=== PATIENT | female | born 1945 | race Hispanic/Latino ===

== ENCOUNTER 2017-04-01 10:41 | Emergency (ER) | payer MEDICARE ==
--- NOTE | 2017-04-01 14:03 | RAD ---
THREE VIEWS OF THE LEFT ANKLE: HISTORY: The patient has had pain along the lateral malleolar region since recent injury. TECHNIQUE: AP, lateral, and oblique views of the left ankle are obtained. FINDINGS: Images demonstrate a tiny osseous area of density dorsal to the navicula. This may represent a smal l avulsion fracture or may represent some soft tissue calcifications. No evidence of fractures or b vijay lesions seen otherwise. No evidence of medial, posterior, or lateral malleolar abnormalities se en. No significant evidence of left ankle edema seen. IMPRESSION: Tiny osseous density dorsal to the navicula. POS: [facility]
--- NOTE | 2017-04-01 14:07 | RAD ---
THREE VIEWS LEFT FOOT HISTORY: Left foot pain. Titus a crunching in her left ankle and has had pain since then. FINDINGS: AP, lateral, and oblique views of the left foot are obtained. No evidence of definite left foot fracture, subluxations, or bony lesions seen. Left foot demonstra tony no significant acute pathology. IMPRESSION: Normal three views left foot. POS: [facility]
== END 2017-04-01 12:25 | disposition home or self-care (01) ==
LOC: SCSER 10:41
DX: M79.672 Pain in left foot (principal); I25.10 Atherosclerotic heart disease of native coronary artery without angina pectoris; I25.2 Old myocardial infarction; E03.9 Hypothyroidism, unspecified; E78.5 Hyperlipidemia, unspecified; I10 Essential (primary) hypertension; Z87.891 Personal history of nicotine dependence; Z79.82 Long term (current) use of aspirin; Z79.899 Other long term (current) drug therapy; X50.1XXA Overexertion from prolonged static or awkward postures, initial encounter; Y93.01 Activity, walking, marching and hiking

== ENCOUNTER 2017-08-12 02:06 | Emergency (ER) | payer MEDICARE ==
--- NOTE | 2017-08-12 08:41 | RAD ---
CHEST PA AND LATERAL: HISTORY: A 72-year-old female with a history of cough. COMPARISON: 02/17/17. FINDINGS: Postop midline sternotomy. Atherosclerosis of the aorta. No confluent pneumonia, overt edema, or pl eural effusion. Stable from prior study. IMPRESSION: Atherosclerosis of the aorta. No acute intrathoracic disease. Stable from prior study. POS: [facility]
== END 2017-08-12 02:39 | disposition home or self-care (01) ==
LOC: SCSER 02:06
DX: B34.9 Viral infection, unspecified (principal); I25.10 Atherosclerotic heart disease of native coronary artery without angina pectoris; I25.2 Old myocardial infarction; E03.9 Hypothyroidism, unspecified; E78.5 Hyperlipidemia, unspecified; I10 Essential (primary) hypertension; Z87.891 Personal history of nicotine dependence
CPT/HCPCS: 71046

== ENCOUNTER 2017-12-11 06:56 | Inpatient (IN) | payer MEDICARE ==
[2017-12-11] MEDS ORDERED: methylPREDNISolone Sod Succ/PF 125 MG/2 ML VIAL ONE (07:23)
[2017-12-11] MEDS ORDERED: Water For Inject, Bacteriostat 30 ML ONE (07:23)
[2017-12-11 08:06] LABS: #Basophils 0.1 thou/uL (0.0-0.2); #Eosinphils 0.2 thou/uL (0.0-0.7); #Lymphocytes 1.3 thou/uL (1.20-3.40); #Monocytes 0.8 thou/uL (0.11-0.59); #Neutrophils 7.6 thou/uL (1.40-6.50); %Basophils 0.7 % (0.0-1.0); %Eosinophils 1.5 % (0.0-10.0); %Lymphocytes 13.1 % (21.0-51.0); %Monocytes 8.4 % (0.0-10.0); %Neutrophils 76.3 % (42.0-75.0); Hemoglobin 13.4 g/dL (12.0-16.0); Mean Corpuscular HGB CONC 35.7 g/dL (32.0-36.0); Mean Corpuscular Hemoglobin 32.5 pg (27.0-31.0); Mean Corpuscular Volume 91.3 fl (81.0-99.0); Mean Platelet Volume 6.1 fL (7.4-10.4); Platelet Count 216 thou/uL (130-400); RBC Distribution Width 11.5 % (11.5-14.5); Red Blood Cell (RBC) Count 4.13 mill/uL (4.20-5.40)
[2017-12-11 08:22] LABS: ALT (SGPT) 35 U/L (8-55); AST (SGOT) 26 U/L (5-34); Albumin 3.9 g/dL (3.4-4.8); Alkaline Phosphatase 72 U/L (40-150); Anion Gap 16 mmol/L (10-20); BUN (Urea Nitrogen) 13 mg/dL (9.8-20.1); Bilirubin, Total 1.2 mg/dL (0.2-1.2); CK (CPK) 40 U/L (29-168); Calc. Creatinine Clearance 0 mL/min (70-130); Calcium 9.5 mg/dL (7.8-10.44); Carbon Dioxide 22 mmol/L (23-31); Chloride 103 mmol/L (98-107); Estimated GFR-MDRD 76; Globulin 3.8 g/dL (2.4-3.5); Glucose 135 mg/dL (83-110); Potassium 3.8 mmol/L (3.5-5.1); Protein, Total 7.7 g/dL (6.0-8.3); Sodium 137 mmol/L (136-145)
[2017-12-11 08:25] LABS: CKMB 0.2 ng/mL (0-6.6); Troponin I Less than 0.010 ng/mL (< 0.028)
--- NOTE | 2017-12-11 08:46 | RAD ---
TWO VIEWS CHEST: HISTORY: Dyspnea. Tachycardia. FINDINGS: PA and lateral views of the chest obtained on 12/11/17. Comparison is made to previous exam from 8. Two views chest demonstrate sternotomy wires seen. The lungs are well aerated. No evidence of activ e intrathoracic disease is seen. No evidence of effusions, pneumonia, or pneumothorax seen. IMPRESSION: Unremarkable 2 views chest. POS: [facility]
--- NOTE | 2017-12-11 09:49 | CT ---
CT ANGIO CHEST WITH IV CONTRAST: Date: 12/11/17 Multiple axial tomograms obtained through chest following a pulmonary angio protocol with multiplanar reconstruction and 3D postprocessing. INDICATIONS: Dyspnea. Tachycardia. Decreased O2 saturation. FINDINGS: Pulmonary arteries show adequate opacification. There is no evidence of pulmonary embolus identified. There are mild atelectatic changes in the posterior lung bases. Otherwise, no focal infiltrate or con solidation. No effusion. Mediastinum is unremarkable. No adenopathy. IMPRESSION: 1. No evidence of pulmonary embolus. 2. Mild atelectasis in the posterior lung bases. No evidence of pulmonary infiltrate. POS: [facility]
[2017-12-11 11:51] LABS: Troponin I Less than 0.010 ng/mL (< 0.028)
[2017-12-11 12:07] VITALS: BMI 34.4
[2017-12-11] MEDS ORDERED: Acetaminophen 325 MG TAB PO PRN ×2 (12:48→15:23)
[2017-12-11] MEDS ORDERED: Ondansetron ODT 4 MG TAB PO PRN ×2 (12:48→15:23)
[2017-12-11] MEDS ORDERED: Ondansetron HCl/PF 4 MG/2 ML Vial IVP PRN ×2 (12:48→15:23)
[2017-12-11] MEDS ORDERED: Iopamidol 370 76% 100 ML VIAL ONE (14:50)
[2017-12-11] MEDS ORDERED: Loperamide HCl 2 MG CAP PO PRN (15:23)
[2017-12-11] MEDS ORDERED: Artificial Tears 18 DROP/0.9 ML EA EYE PRN (15:23)
[2017-12-11] MEDS ORDERED: Diabetic Tussin 200 MG/10 ML UDCUP PO PRN (15:23)
[2017-12-11] MEDS ORDERED: Chloraseptic Spray 180 ml Bottle PO PRN (15:23)
[2017-12-11] MEDS ORDERED: Mag-Al 1200 mg/1200 mg/30 ML UDCUP PO PRN (15:23)
[2017-12-11] MEDS ORDERED: Milk Of Magnesia 30 ML UDCUP PO PRN (15:23)
[2017-12-11] MEDS ORDERED: Zolpidem Tartrate 5 MG TAB PO PRN (15:23)
[2017-12-11] MEDS ORDERED: hydrALAZINE 20 MG/ML VIAL SLOW IVP PRN (15:23)
[2017-12-11] MEDS ORDERED: Loratadine 10 MG TAB PO PRN (15:23)
[2017-12-11] MEDS ORDERED: Nitroglycerin 0.4 MG TAB (25 Tab Bottle) SL PRN (15:23)
[2017-12-11] MEDS ORDERED: Sodium Chloride 0.65% Nasal 44 ML BOT EA NARE PRN (15:23)
[2017-12-11] MEDS ORDERED: Senokot 8.6 MG TAB PO PRN (15:23)
[2017-12-11] MEDS ORDERED: Eucerin (Mineral Oil/Petrolatum,White) 30 gm Jar TOP PRN (15:23)
[2017-12-11] MEDS ORDERED: Meclizine HCl 25 MG TAB PO PRN (15:23)
--- NOTE | 2017-12-11 15:57 | HP ---
PRIMARY CARE PHYSICIAN: Nathanael Cota M.D. REASON FOR ADMISSION: Dyspnea on exertion. HISTORY OF PRESENT ILLNESS: A 72-year-old female with a history of asthma, hypertension, co ronary artery disease who presented to [facility] with complaint of dyspnea on exertion for the last 2 weeks, but symptoms gotten worse for last 2 days. The patient does have history of smoking about 1 pack per day for 30-40 years, but she quit smoking 5 years ago. Patient w as recently admitted in our hospital for chest tightness at that time stress test was done in 02/2017 which was normal. Subsequently, patient also had pulmonary function test done as an outpatient basi s which was also reported normal. Today in the emergency room, routine blood test was normal. D-dim er was elevated and that is why CT angiography was done which was negative for pulmonary embolism. S he did not have any pneumonia on CT scan as well as on chest x-ray and her BNP was normal. Her cardi ac enzymes were negative as well as EKG was also normal. The patient reports that whenever she does walks, she gets out of breath and she reports that this type of symptoms she experienced when she req uired bypass grafting. She denies any palpitations. She denies any orthopnea or PND. She denies an y calf tenderness. She denies any lower extremity edema. She denies any cough. She denies any flu- like symptoms. She denies any hemoptysis. She denies any UTI symptoms. REVIEW OF SYSTEMS: The following complete review of systems was negative, unless otherwise mentioned in the HPI or below: Constitutional: Weight loss or gain, ability to conduct usual activities. Sk in: Rash, itching. Eyes: Double vision, pain. ENT/Mouth: Nose bleeding, neck stiffness, pain, te nderness. Cardiovascular: Palpitations, dyspnea on exertion, orthopnea. Respiratory: Shortness of breath, wheezing, cough, hemoptysis, fever or night sweats. Gastrointestinal: Poor appetite, abdom inal pain, heartburn, nausea, vomiting, constipation, or diarrhea. Genitourinary: Urgency, frequenc y, dysuria, nocturia. Musculoskeletal: Pain, swelling. Neurologic/Psychiatric: Anxiety, depressio n. Allergy/Immunologic: Skin rash, bleeding tendency. Please see my HPI for pertinent positive and negative. All other review of system reviewed and negat freida except as mentioned in the HPI. PAST MEDICAL HISTORY: Gastroesophageal reflux disease, dyslipidemia, coronary artery disease with a history of stent and CABG, peripheral vascular disease, hypothyroidism, hypertension, obesity. PAST SURGICAL HISTORY: CABG, aortic aneurysm repair, hysterectomy, cholecystectomy. PAST PSYCHIATRIC HISTORY: Reviewed and negative. FAMILY HISTORY: Positive for coronary artery disease and stroke among several family members, hypert ension also runs among several family members. SOCIAL HISTORY: Patient is an ex-smoker. She used to smoke 1 pack per day for 40 years, but she jeanette t smoking 6 years ago. She denies any alcohol abuse. She denies any other illicit drug abuse. ALLERGIES: The patient is allergic to CODEINE and SULFA DRUGS. CURRENT HOME MEDICATIONS: ProAir HFA two puffs q.12 hourly p.r.n., aspirin 81 mg p.o. daily, Lipitor 80 mg p.o. at bedtime, Zetia 10 mg p.o. daily, Flonase nasal spray daily, Synthroid 100 mcg p.o. tony ly, Antivert 25 mg p.o. t.i.d. p.r.n., Lopressor 25 mg p.o. at bedtime, Protonix 40 mg p.o. daily. EMERGENCY ROOM COURSE: Patient is given aspirin 325 mg, DuoNeb therapy, Solu-Medrol 125 mg. PHYSICAL EXAMINATION: VITAL SIGNS: On arrival, blood pressure 125/68, pulse 108, respiratory rate 20, temperature 99.2, sa turation 97% on room air, weight 79.4 kilograms. GENERAL: Patient is currently alert, awake, no obvious acute distress. HEAD: Normocephalic, atraumatic. EYES: Pupils round, reactive to light. Extraocular muscle intact. ENT: Oropharynx within normal limits. Moist mucous membranes. No oral lesion, no pharyngeal erythe ma, no exudate. NECK: Supple, no JVD, no thyromegaly, no carotid bruit. LUNGS: Reduced air entry bilaterally, but no wheezing, no rhonchi, no rales. No accessory muscles o f respiration in use. CARDIAC: S1, S2 regular. No murmur, no gallop, no rub. ABDOMEN: Soft, bowel sounds present, nontender, nondistended. No organomegaly, no mass, no suprapub ic tenderness. BACK: Unremarkable, no CVA tenderness. EXTREMITIES: Upper extremity: Passive movements of all joints are normal. Lower extremities: No e cathi. Good peripheral pulsation, no calf tenderness. SKIN: No skin rash. HEMATOLOGIC: No lymphadenopathy. PSYCHIATRIC: Normal affect. SIGNIFICANT LABORATORY DATA: EKG showing sinus tachycardia, nonspecific ST-T changes, no change from previous CT angiography negative for pulmonary embolism. Chest x-ray normal without any acute proce ss. The patient's room air saturation was low at [facility] after exertion. CT angiography is negative. CBC: WBC 10.0, hemoglobin 13.4, platelet 216. D-dimer 2.88. BMP shows so dium 137, potassium 3.8, chloride 103, carbon dioxide 22, BUN 13, creatinine 0.75, glucose 135, calci um 9.5. LFT: AST 26, ALT 35, alkaline phosphatase 72, albumin 3.9, CK 40, CK-MB 0.2, troponin I les s than 0.010 and second set of cardiac enzymes negative. BNP 27.4. ASSESSMENT AND PLAN/IMPRESSION: 1. Dyspnea on exertion. Differential diagnosis is angina equivalent asthma exacerbation. Her D-dim er was elevated, but CT angiography is negative for pulmonary embolism. Her BNP is normal. We will obtain echocardiography to assess ejection fraction and other structural abnormality. We will do ser ial cardiac enzymes x3 to rule out acute coronary syndrome. This patient already had last year stres s test done which was normal. She already had a pulmonary function test and that was also negative f or any restrictive or obstructive defect. At this point, etiology uncertain. Patient will need outp atient evaluation. 2. Hypoxia. The patient was appeared to be hypoxic at [facility]. We will farhan tor her oxygen saturation and if it is normal, then we will discontinue oxygen saturation. While in hospital, we will continue the Ventolin nebulization q.6 hourly, Dulera 2 puff inhalation b.i.d. 3. Coronary artery disease. Continue aspirin, statin, beta rafael therapy as per home dosage. 4. Hypothyroidism. We will continue Synthroid 100 mcg p.o. daily. We will check TSH level. 5. Gastroesophageal reflux disease. Continue Protonix 40 mg p.o. daily. 6. Dyslipidemia. Continue Lipitor 80 mg p.o. at bedtime and Zetia 10 mg p.o. daily. 7. Obesity with BMI 34. Dietary education given, weight loss education given. Healthy lifestyle me asures discussed with the patient. 8. Deep venous thrombosis prophylaxis. Lovenox 40 mg subcu daily. 9. Gastrointestinal prophylaxis. Protonix 40 mg p.o. daily. CODE STATUS: The patient is FULL CODE. The patient does not have any surrogate decision maker. Disposition plan based on clinical course. We are expecting patient's stay in hospital 24-48 hours. Plan of care discussed with the patient in detail. When this patient was admitted, at that time her status was already full admission.
[2017-12-11] MEDS: Atorvastatin Calcium 40 MG TAB PO SCH (20:21)
[2017-12-11] MEDS: Metoprolol Tartrate 25 MG TAB PO SCH (20:22)
[2017-12-11] MEDS: Albuterol Sulfate 2.5 mg/3 ml Neb NEB SCH (20:48)
[2017-12-11] MEDS: Mometasone/Formoterol 120 PUFF INHALER INH SCH (20:51)
[2017-12-12] MEDS: Albuterol Sulfate 2.5 mg/3 ml Neb NEB SCH ×4 (00:23→20:17)
[2017-12-12 05:24] LABS: Cardiac Risk 2.8 (Less than 4.5)
[2017-12-12] MEDS: Levothyroxine Sodium 100 MCG TAB PO SCH (05:29)
[2017-12-12] MEDS: Mometasone/Formoterol 120 PUFF INHALER INH SCH ×2 (06:16→20:19)
[2017-12-12] MEDS: Ezetimibe 10 MG TAB PO SCH (09:00)
[2017-12-12] MEDS: Aspirin 81 mg Enteric Coated Tablet PO SCH (09:00)
[2017-12-12] MEDS: Enoxaparin Sodium 40 MG/0.4 ML SYRINGE SC SCH (09:01)
--- NOTE | 2017-12-12 09:24 | PDOC.PN ---
- Subjective Encounter Start Date: 12/12/17 Encounter Start Time: 09:23 Ms. Celaya was seen today in follow-up of dyspnea. She says she continues to feel short of breath. It is primarily when she gets up to do things. She also notes difficulty breathing when she lays flat. - Objective Resuscitation Status: Resuscitation Status FULL:Full Resuscitation MAR Reviewed: Yes Vital Signs & Weight: Vital Signs (12 hours) Temp Pulse Resp BP Pulse Ox 12/12/17 08:22 91 L 12/12/17 08:00 97.6 F 76 20 119/56 L 96 12/12/17 06:17 60 12 12/12/17 03:12 97.5 F L 68 18 113/55 L 100 12/12/17 00:23 73 18 93 L I&O: 12/11/17 12/12/17 12/13/17 06:59 06:59 06:59 Intake Total 960 Output Total 950 Balance 10 Result Diagrams: 12/11/17 07:15 12/11/17 07:55 Phys Exam - Physical Examination HEENT: PERRLA Respiratory: no wheezing, no rhonchi + bilateral fine crackles Cardiovascular: RRR, no significant murmur, no rub Gastrointestinal: soft, non-tender, positive bowel sounds Musculoskeletal: no edema Dx/Plan (1) Dyspnea on exertion Code(s): R06.09 - OTHER FORMS OF DYSPNEA Status: Acute (2) Hypertension Code(s): I10 - ESSENTIAL (PRIMARY) HYPERTENSION Status: Acute (3) Coronary artery disease Code(s): I25.10 - ATHSCL HEART DISEASE OF [place] CORONARY ARTERY W/O ANG PCTRS Status: Acute (4) Obesity (BMI 30-39.9) Code(s): E66.9 - OBESITY, UNSPECIFIED Status: Acute (5) Hypothyroidism Code(s): E03.9 - HYPOTHYROIDISM, UNSPECIFIED Status: Acute - Plan * Dyspnea on exertion- this has been progressive - the etiology is unclear- await Echo * HTN - blood pressure is stable * CAD- she has had a recent stress test which was negative, and all the troponins have been normal- stable. * Hypothyroidism- will check a free T4
[2017-12-12] MEDS: Fluticasone Propionate Nasal Spray 16 gm Bottle NASAL SCH (14:38)
[2017-12-12] MEDS: Atorvastatin Calcium 40 MG TAB PO SCH (21:13)
[2017-12-12] MEDS: Metoprolol Tartrate 25 MG TAB PO SCH (21:14)
[2017-12-12] MEDS ORDERED: diphenhydrAMINE 50 MG/ML VIAL IVP SCH (21:15)
[2017-12-13] MEDS: Albuterol Sulfate 2.5 mg/3 ml Neb NEB SCH ×2 (00:59→07:15)
[2017-12-13] MEDS: Levothyroxine Sodium 100 MCG TAB PO SCH (05:50)
[2017-12-13] MEDS: Mometasone/Formoterol 120 PUFF INHALER INH SCH (07:14)
[2017-12-13] MEDS: Aspirin 81 mg Enteric Coated Tablet PO SCH (08:16)
[2017-12-13] MEDS: Ezetimibe 10 MG TAB PO SCH (08:16)
[2017-12-13] MEDS: Enoxaparin Sodium 40 MG/0.4 ML SYRINGE SC SCH (08:16)
[2017-12-13] MEDS: Fluticasone Propionate Nasal Spray 16 gm Bottle NASAL SCH (09:24)
[2017-12-13] MEDS ORDERED: Furosemide 20 MG/2 ML VIAL SLOW IVP SCH (10:00)
--- NOTE | 2017-12-13 11:21 | DIS ---
DATE OF ADMISSION: 12/11/2017 DATE OF DISCHARGE: 12/13/2017 PRIMARY CARE PHYSICIAN: Dr. Cota. DISCHARGE DISPOSITION: Home. PRIMARY DISCHARGE DIAGNOSES: 1. Acute on chronic systolic as well as diastolic heart failure. 2. History of coronary artery disease. 3. Hypertension. 4. Obesity with a BMI of 34.4. 5. Hypothyroidism. DISCHARGE MEDICATIONS: Please note that the patient's Lopressor dose has been decreased to 12.5 at b edtime, lisinopril 5 mg daily has been added. We will also recommend to decrease her levothyroxine t o 75 mcg a day. Continue pantoprazole 40 mg daily, meclizine 25 mg t.i.d., Lasix 20 mg as directed a nd this is only as needed for an increase in her weight by 2-3 pounds, Flonase nasal spray, Zetia 10 mg daily, atorvastatin 80 mg daily, aspirin 81 mg daily, and ProAir inhaler 2 puffs twice a day. PROCEDURES DONE DURING ADMISSION: The patient had a CT angiogram of the chest, which was negative fo r pulmonary embolism. There was no evidence of any infiltrate. The patient also had an echocardiogr am in which the ejection fraction was estimated at 45%-50%. There was some E to A flow reversal note d suggestive of diastolic dysfunction and there was moderate mitral regurg noted. CODE STATUS: FULL CODE. ALLERGIES: CODEINE and SULFA. HOSPITAL COURSE: Ms. Celaya is a very pleasant 72-year-old female who presented to the emergency r oom with complaints of dyspnea on exertion. She had been experiencing this off and on actually for s everal months, but it got worse in the last couple of days. She had an appointment scheduled for Dr. Belle, but she could not weight due to her symptoms and came to the ER where she had a CT angiogr am of the chest due to concerns for possible PE. This was negative and an echo was done and it did d emonstrate that she had some mild systolic dysfunction as well as diastolic dysfunction. Even though her chest x-ray was negative, there were crackles audible on exam and therefore we suspect that her symptoms are likely related to the heart failure. She will be started on an BHARTI inhibitor and her do se of metoprolol will be decreased due to relative low blood pressure and also will be treating her w ith Lasix as needed. It was also noted that her TSH was slightly elevated and her TSH was suppressed and I suspect that she may be slightly over replaced with her thyroid hormone and therefore we sugge st that she decreased it to 75 mcg or 88 mcg daily and of course her primary care physician can reche ck this at a later date.
[2017-12-13 12:54] VITALS: BP 116/57; TEMP 98.4
--- NOTE | 2017-12-14 14:35 | EKG ---
Test Reason : Blood Pressure : / mmHG Vent. Rate : 106 BPM Atrial Rate : 106 BPM P-R Int : 146 ms QRS Dur : 084 ms QT Int : 328 ms P-R-T Axes : -16 016 -13 degrees QTc Int : 435 ms Sinus tachycardia Nonspecific T wave abnormality Abnormal ECG Compared to ekg of 17-FEB-2017 No acute changes Confirmed by AZAR DREW ([id number]), editor map CHACORTA CARPENTER ([id number]) on 12/14/2017 2:34:36 PM Referred By: JOJO DREW Confirmed By:AZAR DREW
--- NOTE | 2017-12-14 14:36 | EKG ---
Test Reason : Blood Pressure : / mmHG Vent. Rate : 115 BPM Atrial Rate : 115 BPM P-R Int : 144 ms QRS Dur : 088 ms QT Int : 318 ms P-R-T Axes : 000 -20 -23 degrees QTc Int : 439 ms Sinus tachycardia Low voltage QRS Nonspecific T wave abnormality Low voltage No acute changes Abnormal ECG Confirmed by AZAR DREW ([id number]), commissioning editor CHACORTA CARPENTER ([id number]) on 12/14/2017 2:35:19 PM Referred By: JOJO DREW Confirmed By:AZAR DREW
== END 2017-12-13 13:46 | disposition home or self-care (01) | DRG 293 ==
LOC: SCSER 06:56 → 2NO 10:08
PROVIDERS: ADMIT Internal Medicine; ATTEND Internal Medicine
DX: I11.0 Hypertensive heart disease with heart failure (principal); I50.43 Acute on chronic combined systolic (congestive) and diastolic (congestive) heart failure; K21.9 Gastro-esophageal reflux disease without esophagitis; E78.5 Hyperlipidemia, unspecified; I25.10 Atherosclerotic heart disease of native coronary artery without angina pectoris; I73.9 Peripheral vascular disease, unspecified; E03.9 Hypothyroidism, unspecified; E66.9 Obesity, unspecified; Z79.899 Other long term (current) drug therapy; Z68.34 Body mass index [BMI] 34.0-34.9, adult; Z79.82 Long term (current) use of aspirin; Z95.1 Presence of aortocoronary bypass graft; Z88.2 Allergy status to sulfonamides; Z88.5 Allergy status to narcotic agent; Z87.891 Personal history of nicotine dependence; Z90.710 Acquired absence of both cervix and uterus
CPT/HCPCS: 36415; 36416; 71046; 71275; 80053; 80061; 82550; 82553; 83880; 84439; 84443; 84484; 85025; 85379; 93005; 93306; 94640; 94664; 96374; A4216; J1200; J1650; J1940; J2930; J7611; J7620

== ENCOUNTER 2018-01-10 19:32 | Observation (INO) | payer MEDICARE ==
[~2018-01-10 19:32] MED LIST: Iopamidol 370 76% 100 ML VIAL ONE
[2018-01-10] MEDS ORDERED: Nitroglycerin 0.4 MG TAB (25 Tab Bottle) ONE (19:56)
[2018-01-10 20:21] LABS: #Eosinphils 0.3 thou/uL (0.0-0.7); #Lymphocytes 2.8 thou/uL (1.20-3.40); #Monocytes 0.6 thou/uL (0.11-0.59); %Basophils 0.6 % (0.0-1.0); %Eosinophils 4.1 % (0.0-10.0); %Lymphocytes 35.6 % (21.0-51.0); %Monocytes 8.2 % (0.0-10.0); %Neutrophils 51.5 % (42.0-75.0); Hemoglobin 12.7 g/dL (12.0-16.0); Mean Corpuscular HGB CONC 34.2 g/dL (32.0-36.0); Mean Corpuscular Hemoglobin 30.6 pg (27.0-31.0); Mean Corpuscular Volume 89.7 fL (78.0-98.0); Mean Platelet Volume 6.3 fL (7.4-10.4); Platelet Count 154 thou/uL (130-400); RBC Distribution Width 12.7 % (11.5-14.5); Red Blood Cell (RBC) Count 4.15 mill/uL (4.20-5.40); White Blood Cell (WBC) Count 7.8 thou/uL (4.8-10.8)
--- NOTE | 2018-01-10 20:22 | RAD ---
PORTABLE CHEST: 01/10/18 HISTORY: Chest pain. The lung barnes are clear. No infiltrate seen. The heart and mediastinum unremarkable. Postop sternot humphrey changes noted. IMPRESSION: No evidence of acute process. POS: [facility]
[2018-01-10 20:35] LABS: ALT (SGPT) 32 U/L (8-55); AST (SGOT) 25 U/L (5-34); Albumin 4.1 g/dL (3.4-4.8); Alkaline Phosphatase 65 U/L (40-150); Anion Gap 14 mmol/L (10-20); BUN (Urea Nitrogen) 20 mg/dL (9.8-20.1); Bilirubin, Total 0.5 mg/dL (0.2-1.2); CK (CPK) 45 U/L (29-168); Calc. Creatinine Clearance 0 mL/min (70-130); Calcium 9.2 mg/dL (7.8-10.44); Carbon Dioxide 27 mmol/L (23-31); Chloride 106 mmol/L (98-107); Estimated GFR-MDRD 67; Globulin 3.2 g/dL (2.4-3.5); Glucose 116 mg/dL (83-110); Lipase 57 U/L (8-78); Potassium 3.9 mmol/L (3.5-5.1); Protein, Total 7.3 g/dL (6.0-8.3); Sodium 143 mmol/L (136-145)
[2018-01-10 20:38] LABS: CKMB 0.4 ng/mL (0-6.6); Troponin I Less than 0.010 ng/mL (< 0.028)
--- NOTE | 2018-01-10 21:44 | CT ---
CT AORTOGRAM CHEST AND ABDOMEN WITH CONTRAST: 01/10/18 Multiple axial tomograms obtained through the chest and abdomen following an aortogram protocol with multiplanar reconstruction and 3D postprocessing with arterial phase enhancement. INDICATIONS: Chest pain. Assess for aortic dissection. FINDINGS: Thoracic aorta is normal caliber with mild atherosclerotic change. The abdominal aorta shows moderate atherosclerotic change and there is fusiform aneurysmal dilatation of the abdominal aorta with diame ter measured at the 3.0 cm. There is no evidence of thoracic or abdominal aortic dissection. The aortic bifurcation is patent and the proximal common iliac arteries are patent. 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 There is also moderate stenosis at the origin o f the superior mesenteric due to a soft web like plaque. No evidence of significant renal artery st enosis. The lung barnes appears clear with chronic lung changes. No infiltrate or effusion. Soft tissues of t he abdomen unremarkable. The liver, spleen, pancreas, unremarkable. There is a right renal cystic le damien from the inferior right kidney. Kidneys show equal function. Bowel loops unremarkable. IMPRESSION: 1. Fusiform aneurysmal dilatation of the abdominal aorta with mild to moderate atherosclerotic c hange. 2. No evidence of thoracic or abdominal aortic dissection. 3. 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 POS: [facility]
[2018-01-10 22:54] VITALS: BMI 34.4
[2018-01-10] MEDS ORDERED: Acetaminophen 325 MG TAB PO PRN (23:00)
[2018-01-10] MEDS ORDERED: Ondansetron HCl/PF 4 MG/2 ML Vial IVP PRN (23:00)
[2018-01-10] MEDS ORDERED: Ondansetron ODT 4 MG TAB SL PRN (23:00)
[2018-01-10 23:26] LABS: Troponin I 0.022 ng/mL (< 0.028)
[2018-01-11] MEDS ORDERED: Meclizine HCl 25 MG TAB PO PRN (00:38)
[2018-01-11] MEDS ORDERED: Furosemide 20 MG TAB PO PRN (00:45)
--- NOTE | 2018-01-11 02:00 | HP ---
CODE STATUS: FULL CODE. PRIMARY CARE PHYSICIAN: Dr. Nathanael Cota. TIME OF EVALUATION: 12:35 a.m. CHIEF COMPLAINT: Chest pain. HISTORY OF PRESENT ILLNESS: This is a 72-year-old female patient with past medical history of CABG in the past, patient follows with Dr. Belle, patient stated that she had extensive workup [address] Belle and that she is not willing to have any other testing as of now, for that reason we will consult Dr. Belle in the morning. The patient reported having severe chest pain radiating to the back, that was 10/10, pain has been on and off, no clear triggers, no alleviating factors. The initial troponin was negative. Baseline EKG changes with T-wave inversion in V1-V4 REVIEW OF SYSTEMS: Constitutional: The patient has no fever, chills, generalized weakness. Respiratory: No cough, no sputum production, no shortness of breath. Cardiovascular: The patient has chest pain, radiating to her back, as described in the HPI, no palpitation, no shortness of breath. Gastrointestinal: No nausea, no vomiting, no diarrhea, no abdominal pain. [employer] : No dizziness, headache or feeling lightheaded. Genitourinary: No burning on urination. Extremities: No leg swelling. All other systems reviewed were negative except for the findings mentioned above. PAST MEDICAL HISTORY: History of coronary artery disease, status post CABG, history of AAA repair, hypothyroidism, hyperlipidemia, high cholesterol, hypertension, chronic back pain, CHF. PAST SURGICAL HISTORY: History of CABG x4 vessels, AAA repair in 2010. cholecystectomy, hysterectomy, cardiac stents x1. PSYCHIATRIC HISTORY: No previous psychiatric history. SOCIAL HISTORY: No alcohol, no tobacco. Lives at home with family. FAMILY HISTORY: Mother with stroke. Father, coronary artery disease. KNOWN ALLERGIES: To ALBUTEROL, CODEINE and SULFA. REPORTED MEDICATIONS: Atorvastatin, Zetia, pantoprazole, metoprolol, aspirin, levothyroxine, lisinopril, Lasix. PHYSICAL EXAMINATION: VITAL SIGNS: On presentation, blood pressure 135/56, heart rate 74, respiratory rate was 18, temperature 98.4. GENERAL: The patient is alert and oriented, in no acute distress. HEENT: Eyes, normal conjunctivae. NECK: No JVD. RESPIRATORY: Bilateral air entry. No rales, no wheezing. Symmetrical expansion. CARDIOVASCULAR: Normal rate and rhythm. No murmurs, no gallop. EXTREMITIES: Mild edema 1+ in bilateral legs. ABDOMEN: Soft, normal bowel sounds. MUSCULOSKELETAL: Baseline range of motion. SKIN: Warm, intact. No pallor, no rash, no redness. NEUROLOGIC: Baseline sensory. No evidence of any new focal weakness. Baseline speech. Cranial nerves sensory intact. PSYCHIATRIC: The patient is in good mood. No anxiety, oriented optimal judgment. LABORATORY DATA: White count 7.8, hemoglobin 12.7, MCV 89.7, platelet count 154. D-dimer 3.75. Sodium 143, potassium 3.9, chloride 106, carbon dioxide 27 , anion gap 14, BUN 20, creatinine 0.84, GFR 67, glucose 116, calcium 9.2, total bilirubin 0.5, AST 25, ALT 32, alkaline phosphatase 65, CK 45, troponin 0.072. Beta natriuretic peptide is 41.9. Lipase 57. EKG was reviewed. The patient has normal sinus rhythm at the rate of 70, UT 168, QRS 86, QT corrected 434, nonspecific T-wave abnormality. The patient had T-wave inversion in V1- V4. CAT scan was reviewed. The patient has fusiform aneurysmal dilation of the abdominal aorta with mild to moderate atherosclerotic changes. No evidence of thoracic or abdominal aortic dissection, moderate stenosis of the origin of the celiac and superior mesenteric arteries approaching 50% in diameter stenosis. ASSESSMENT AND PLAN: The patient was placed in the hospital following medical problems. 1. Chest pain, rule out acute coronary syndrome. The patient has negative troponin, T-wave inversion in V1-V4, the patient had extensive workup done by Dr. Belle recently, we will call Dr. Belle in the morning for any further recommendations. Reconcile home medications. Monitor on tele. 2. History of hypertension. chronic problem, It has been controlled, reconcile home meds, adjust treatment as needed. 3. Hypothyroidism. Continue hormone replacement. 4. Hyperlipidemia. Low cholesterol diet is advised, reconcile home meds. 5. Deep venous thrombosis prophylaxis. MTDD
[2018-01-11 03:14] LABS: #Eosinphils 0.3 thou/uL (0.0-0.7); #Lymphocytes 2.6 thou/uL (1.20-3.40); #Monocytes 0.6 thou/uL (0.11-0.59); %Basophils 0.3 % (0.0-1.0); %Eosinophils 3.4 % (0.0-10.0); %Lymphocytes 34.8 % (21.0-51.0); %Monocytes 8.2 % (0.0-10.0); %Neutrophils 53.3 % (42.0-75.0); Hemoglobin 12.5 g/dL (12.0-16.0); Mean Corpuscular HGB CONC 33.7 g/dL (32.0-36.0); Mean Corpuscular Hemoglobin 32.1 pg (27.0-31.0); Mean Corpuscular Volume 95.5 fL (78.0-98.0); Platelet Count 146 thou/uL (130-400); RBC Distribution Width 13.2 % (11.5-14.5); Red Blood Cell (RBC) Count 3.88 mill/uL (4.20-5.40); White Blood Cell (WBC) Count 7.5 thou/uL (4.8-10.8)
[2018-01-11 03:30] LABS: Anion Gap 11 mmol/L (10-20); BUN (Urea Nitrogen) 20 mg/dL (9.8-20.1); Calc. Creatinine Clearance 95 mL/min (70-130); Calcium 9.1 mg/dL (7.8-10.44); Carbon Dioxide 26 mmol/L (23-31); Chloride 109 mmol/L (98-107); Estimated GFR-MDRD 81; Glucose 108 mg/dL (83-110); Potassium 4.2 mmol/L (3.5-5.1); Sodium 142 mmol/L (136-145)
[2018-01-11 03:31] LABS: Troponin I Less than 0.010 ng/mL (< 0.028)
[2018-01-11] MEDS: Levothyroxine Sodium 100 MCG TAB PO SCH (04:26)
[2018-01-11] MEDS ORDERED: Nitroglycerin 2% Ointment 1 INCH/1 GM Packet TOP SCH (06:00)
[2018-01-11] MEDS ORDERED: Enoxaparin Sodium 40 MG/0.4 ML SYRINGE SC SCH (09:00)
[2018-01-11] MEDS: Lisinopril 5 MG TAB PO SCH (09:40)
[2018-01-11] MEDS: Aspirin 81 mg Enteric Coated Tablet PO SCH (09:42)
[2018-01-11] MEDS: Fluticasone Propionate Nasal Spray 16 gm Bottle NASAL SCH (09:46)
[2018-01-11] MEDS ORDERED: Communication Order-Pharmacy FS SCH (15:15)
--- NOTE | 2018-01-11 17:52 | PDOC.PN ---
- Subjective Encounter Start Date: 01/11/18 Encounter Start Time: 15:00 Subjective: pt up in bed no chest pain - Objective Resuscitation Status: Resuscitation Status FULL:Full Resuscitation Vital Signs & Weight: Vital Signs (12 hours) Temp Pulse Resp BP BP Pulse Ox 01/11/18 15:18 97.5 F L 58 L 16 133/63 92 L 01/11/18 12:20 97.6 F 54 L 14 106/51 L 95 01/11/18 09:40 56 L 143/60 H 01/11/18 07:40 98.0 F 60 18 143/60 H 96 Weight Weight 182 lb 1.6 oz I&O: 01/10/18 01/11/18 01/12/18 06:59 06:59 06:59 Intake Total 240 Output Total 650 Balance -410 Result Diagrams: 01/11/18 02:54 01/11/18 02:54 Phys Exam - Physical Examination HEENT: PERRLA, moist MMs, sclera anicteric, TM's clear, oral pharynx no lesions , 2+ tonsils Neck: no nodes, no JVD, supple, full ROM Respiratory: no wheezing, no rales, no rhonchi, wheezing present, clear to auscultation bilateral Cardiovascular: RRR, no significant murmur, no rub, gallop, irregular Gastrointestinal: soft, non-tender, no distention, positive bowel sounds Dx/Plan (1) Chest pain due to CAD Code(s): R07.9 - CHEST PAIN, UNSPECIFIED; I25.10 - ATHSCL HEART DISEASE OF [place] CORONARY ARTERY W/O ANG PCTRS Status: Acute (2) Coronary artery disease Code(s): I25.10 - ATHSCL HEART DISEASE OF [place] CORONARY ARTERY W/O ANG PCTRS Status: Acute (3) Hypertension Code(s): I10 - ESSENTIAL (PRIMARY) HYPERTENSION Status: Acute (4) Hypothyroidism Code(s): E03.9 - HYPOTHYROIDISM, UNSPECIFIED Status: Acute - Plan pt going to go for a cath in am -: educated to call if she has chest pain -: vitals stable * . Review of Systems - Review of Systems Eyes: negative: Pain, Vision Change, Conjunctivae Inflammation, Eyelid Inflammation, Redness, Other ENT: negative: Ear Pain, Ear Discharge, Nose Pain, Nose Discharge, Nose Congestion, Mouth Pain, Mouth Swelling, Throat Pain, Throat Swelling, Other Respiratory: negative: Cough, Dry, Shortness of Breath, Hemoptysis, SOB with Excertion, Pleuritic Pain, Sputum, Wheezing Cardiovascular: negative: chest pain, palpitations, orthopnea, paroxysmal nocturnal dyspnea, edema, light headedness, other Gastrointestinal: negative: Nausea, Vomiting, Abdominal Pain, Diarrhea, Constipation, Melena, Hematochezia, Other - Medications/Allergies Allergies/Adverse Reactions: Allergies Allergy/AdvReac Type Severity Reaction Status Date / Time albuterol Allergy Verified 01/10/18 22:57 codeine [Codeine] Allergy Verified 01/10/18 22:57 Sulfa (Sulfonamide Allergy Verified 01/10/18 22:57 Antibiotics) Medications: Current Medications Aspirin (Ecotrin) 81 mg PO DAILY [facility] Last Admin: 01/11/18 09:42 Dose: 81 mg Atorvastatin Calcium (Lipitor) 80 mg PO HS [facility] Clopidogrel Bisulfate (Plavix) 75 mg PO DAILY [facility] Ezetimibe (Zetia) 10 mg PO HS [facility] Enoxaparin Sodium (Lovenox) 40 mg SC 0900 [facility] Stop: 01/11/18 23:59 Last Admin: 01/11/18 09:43 Dose: 40 mg Fluticasone Propionate (Flonase Nasal [place]) 0 gm NASAL DAILY [facility] Last Admin: 01/11/18 09:46 Dose: Not Given Furosemide (Lasix) 20 mg PO DAILYPRN PRN PRN Reason: FOR WT GAIN OF 2-3 LBS AND SOB Sodium Chloride (Normal Saline 0.9%) 1,000 mls @ 75 mls/hr IV .[id number] [facility] Levothyroxine Sodium (Synthroid) 100 mcg PO 0600 [facility] Last Admin: 01/11/18 04:26 Dose: 100 mcg Lisinopril (Zestril) 5 mg PO DAILY [facility] Last Admin: 01/11/18 09:40 Dose: 5 mg Meclizine HCl (Antivert) 25 mg PO TID PRN PRN Reason: dizziness Metoprolol Tartrate (Lopressor) 12.5 mg PO QPM [facility] Miscellaneous Information (Communication Order-Pharmacy) 0 each FS ONE [facility] Stop: 01/11/18 23:59 Pantoprazole Sodium (Protonix) 40 mg PO DAILY [facility] Last Admin: 07/05/18 09:42 Dose: 40 mg Ranolazine (Ranexa) 500 mg PO BID [facility]
[2018-01-11] MEDS: Ezetimibe 10 MG TAB PO SCH (20:05)
[2018-01-11] MEDS: Metoprolol Tartrate 25 MG TAB PO SCH (20:05)
[2018-01-11] MEDS: Atorvastatin Calcium 40 MG TAB PO SCH (20:05)
--- NOTE | 2018-01-11 23:38 | CON ---
DATE OF CONSULTATION: 01/11/2018 CARDIOLOGY CONSULTATION REASON FOR CONSULTATION: Shortness of breath. PRIMARY RIVET CATCHER: Dr. David Belle. HISTORY OF PRESENT ILLNESS: Mrs. Celaya is a very pleasant 72-year-old female who comes t o the hospital for shortness of breath. She has got increasingly more short of breath in the last fe w months. She actually had an admission just a month ago for the same reason. She was admitted. Ec hocardiogram was done which showed an EF of 45%-50% which is chronic for her with diastolic dysfuncti on and was discharged home. She comes in today as she has noticed increased shortness of breath with exertion and she had an episode at rest yesterday with pain to the back in the midscapular area ____ _ but she eventually got more short of breath, so it was decided to come in for evaluation. She was admitted. Troponins were done and they were unremarkable with BNP of 41. Cardiology is being consul jenni for evaluation and care. She does have a history of coronary artery disease with bypass in 2012 as well as aortic root replacement. She had a CT of the chest per dissection protocol showed no evid ence of aneurysm or dissection on the ascending aorta. There is a 3.0 abdominal aortic aneurysm whic h is fusiform. She had a stress test back in February of last year which was unremarkable and she was scheduled to get a PET scan in the office, but she never did come around to do this. PAST MEDICAL HISTORY: 1. Gastroesophageal reflux disease. 2. Hyperlipidemia. 3. Coronary artery disease. 4. History of stenting and bypass in the past. 5. Peripheral vascular disease. 6. Hypothyroidism. 7. Hypertension. 8. Obesity. PAST SURGICAL HISTORY: 1. CABG x3. 2. Aortic aneurysm replacement. 3. Hysterectomy. 4. Cholecystectomy. OUTPATIENT MEDICATIONS: Include, 1. ProAir. 2. Aspirin 81 a day. 3. Lipitor 80 mg at bedtime. 4. Zetia 10 mg a day. 5. Flonase. 6. Synthroid 100 mcg a day. 7. Antivert 25 mg t.i.d. p.r.n. 8. Lopressor 25 mg at bedtime. 9. Protonix 40 mg a day. ALLERGIES: CODEINE and SULFA DRUGS. SOCIAL HISTORY: Former smoker, a pack a day for 40 years, but quit 6 years ago. No alcohol or drug use. FAMILY HISTORY: Early coronary artery disease, hypertension, and otherwise noncontributory. REVIEW OF SYSTEMS: A 12-point review of systems was done, it is all negative except as stated in the history of present illness. PHYSICAL EXAMINATION: VITAL SIGNS: Temperature 97.6, pulse 54, respiratory rate 14, satting 95% on 2 liters, blood pressur e 106/51. GENERAL: Awake, alert, oriented x3, in no distress. HEENT: Normocephalic, atraumatic. NECK: Supple. LUNGS: Clear. CARDIOVASCULAR: S1 and S2, no S3, S4, no murmurs. ABDOMEN: Soft, positive bowel sounds. EXTREMITIES: 1+ edema. SKIN: Warm and dry. LABORATORY DATA AND IMAGING DATA: 1. Laboratory work was reviewed. CBC unremarkable, normal hemoglobin. Coags; D-dimer was a little high. Chemistry was unremarkable. Troponin was negative x3. BNP was 41. Albumin of 4.1. Lipase w as normal. 2. EKG was reviewed, no ischemic changes. 3. CT per dissection was reviewed. A 3.0 cm fusiform abdominal aortic aneurysm. No evidence of dis section or aneurysm dilatation of the ascending aorta. There is celiac disease, 50% of stenosis. 4. Nuclear stress was in 2017 showed an EF of 56%, no ischemia. Pulmonary function test done about a year ago were normal. Echocardiogram done on 12/12/2017 here in the hospital showed an EF of 45%-5 0%, diastolic dysfunction, moderate MR, aortic valve sclerosis. ASSESSMENT AND PLAN: 1. Shortness of breath and dyspnea on exertion; certainly, this could be an anginal equivalent. She will need further risk stratification with a heart catheterization. She would like Dr. Belle to perform this procedure. I think this is reasonable. Dr. Belle is not here tomorrow, he will be b ack next week. We will plan on sending her home with Ranexa for antianginal therapy. She is not hav ing an acute coronary syndrome. It should be safe for her to wait for a few days before the procedur e. She has also been having this for the last month or two as well. She is okay with this plan. We will try to schedule her for an outpatient heart catheterization in the next week or two with Dr. Mary mari. 2. Continue aspirin. We will start her on Plavix and Ranexa. She has been on nitrates before, but it drops her blood pressure too much and it does not like the way it made her feel, so we are going t o stay away from these for now. Thank you for letting us to participate in the care of your patient. We will follow.
[2018-01-11] MEDS ORDERED: Sodium Chloride 0.9% 1,000 ML IV SCH (23:55)
[2018-01-12] MEDS: Levothyroxine Sodium 100 MCG TAB PO SCH (05:37)
[2018-01-12] MEDS: Aspirin 81 mg Enteric Coated Tablet PO SCH (05:37)
[2018-01-12] MEDS: Lisinopril 5 MG TAB PO SCH (05:37)
[2018-01-12] MEDS: Clopidogrel Bisulfate 75 MG TAB PO SCH (05:37)
[2018-01-12] MEDS: Fluticasone Propionate Nasal Spray 16 gm Bottle NASAL SCH (05:38)
[2018-01-12] MEDS ORDERED: Lidocaine 1% (PF) 30 ML VIAL ONE (08:41)
[2018-01-12] MEDS ORDERED: Midazolam HCl 2 mg/2 ml Vial ONE (09:12)
[2018-01-12] MEDS ORDERED: Fentanyl 100 MCG/2 ML VIAL ONE (09:12)
[2018-01-12] MEDS ORDERED: Nitroglycerin 0.4 MG TAB (25 Tab Bottle) SL PRN (10:00)
[2018-01-12] MEDS ORDERED: traMADol HCl 50 MG TAB PO PRN (10:00)
[2018-01-12] MEDS ORDERED: Sodium Chloride 0.9% 200 ML IV PRN (10:00)
[2018-01-12] MEDS: Sodium Chloride 0.9% 1,000 ML IV SCH ×2 (10:35→13:22)
[2018-01-12] MEDS ORDERED: Iopamidol 370 76% 100 ML VIAL ONE (11:03)
[2018-01-12] MEDS ORDERED: Iopamidol 370 76% 50 ML VIAL FS ONE (11:03)
--- NOTE | 2018-01-12 14:45 | PDOC.PN ---
- Subjective Encounter Start Date: 01/12/18 Encounter Start Time: 11:00 Subjective: pt up in bed no complains - Objective Resuscitation Status: Resuscitation Status FULL:Full Resuscitation Vital Signs & Weight: Vital Signs (12 hours) Temp Pulse Resp BP BP Pulse Ox 01/12/18 11:08 97.9 F 55 L 17 123/59 L 98 01/12/18 10:15 53 L 16 139/60 01/12/18 07:45 98.2 F 60 18 01/12/18 07:40 98.2 F 60 18 137/63 95 01/12/18 05:37 63 146/64 H 01/12/18 05:30 97.9 F 63 18 146/64 H 92 L Weight Weight 182 lb 1.6 oz I&O: 01/11/18 01/12/18 01/13/18 06:59 06:59 06:59 Intake Total 240 1461 519 Output Total 650 1700 Balance -410 -239 519 Result Diagrams: 01/11/18 02:54 01/11/18 02:54 Phys Exam - Physical Examination HEENT: PERRLA, moist MMs, sclera anicteric, TM's clear, oral pharynx no lesions , 2+ tonsils Neck: no nodes, no JVD, supple, full ROM Respiratory: no wheezing, no rales, no rhonchi, wheezing present, clear to auscultation bilateral Cardiovascular: RRR, no significant murmur, no rub, gallop, irregular right groin dressing intact, pedal pulse present Gastrointestinal: soft, non-tender, no distention, positive bowel sounds Dx/Plan (1) Chest pain due to CAD Code(s): R07.9 - CHEST PAIN, UNSPECIFIED; I25.10 - ATHSCL HEART DISEASE OF [place] CORONARY ARTERY W/O ANG PCTRS Status: Acute (2) Coronary artery disease Code(s): I25.10 - ATHSCL HEART DISEASE OF [place] CORONARY ARTERY W/O ANG PCTRS Status: Acute (3) Hypertension Code(s): I10 - ESSENTIAL (PRIMARY) HYPERTENSION Status: Acute (4) Hypothyroidism Code(s): E03.9 - HYPOTHYROIDISM, UNSPECIFIED Status: Acute - Plan pt s/p cardiac cath no intervention -: recommended ranexa for her pain -: spoke with cardiology to keep pt overnight and discharge in am * . Review of Systems - Review of Systems ENT: negative: Ear Pain, Ear Discharge, Nose Pain, Nose Discharge, Nose Congestion, Mouth Pain, Mouth Swelling, Throat Pain, Throat Swelling, Other Respiratory: negative: Cough, Dry, Shortness of Breath, Hemoptysis, SOB with Excertion, Pleuritic Pain, Sputum, Wheezing Cardiovascular: negative: chest pain, palpitations, orthopnea, paroxysmal nocturnal dyspnea, edema, light headedness, other Gastrointestinal: negative: Nausea, Vomiting, Abdominal Pain, Diarrhea, Constipation, Melena, Hematochezia, Other - Medications/Allergies Allergies/Adverse Reactions: Allergies Allergy/AdvReac Type Severity Reaction Status Date / Time albuterol Allergy Verified 01/10/18 22:57 codeine [Codeine] Allergy Verified 01/10/18 22:57 Sulfa (Sulfonamide Allergy Verified 01/10/18 22:57 Antibiotics) Medications: Current Medications Aspirin (Ecotrin) 81 mg PO DAILY [facility] Last Admin: 01/12/18 05:37 Dose: 81 mg Atorvastatin Calcium (Lipitor) 80 mg PO HS [facility] Last Admin: 01/11/18 20:05 Dose: 80 mg Clopidogrel Bisulfate (Plavix) 75 mg PO DAILY [facility] Last Admin: 01/12/18 05:37 Dose: 75 mg Ezetimibe (Zetia) 10 mg PO HS [facility] Last Admin: 01/11/18 20:05 Dose: 10 mg Fluticasone Propionate (Flonase Nasal [place]) 0 gm NASAL DAILY [facility] Last Admin: 01/12/18 05:38 Dose: Not Given Furosemide (Lasix) 20 mg PO DAILYPRN PRN PRN Reason: FOR WT GAIN OF 2-3 LBS AND SOB Sodium Chloride (Normal Saline 0.9%) 1,000 mls @ 100 mls/hr IV .Q10H [facility] Stop: 01/12/18 15:15 Last Admin: 01/12/18 13:22 Dose: 1,000 mls Sodium Chloride (Normal Saline 0.9%) 200 mls @ 0 mls/hr IV ONE PRN; As Directed PRN Reason: Bolus PRN SBP < 90 mm Hg Stop: 01/15/18 10:01 Levothyroxine Sodium (Synthroid) 100 mcg PO 0600 [facility] Last Admin: 01/12/18 05:37 Dose: 100 mcg Lisinopril (Zestril) 5 mg PO DAILY [facility] Last Admin: 01/12/18 05:37 Dose: 5 mg Meclizine HCl (Antivert) 25 mg PO TID PRN PRN Reason: dizziness Metoprolol Tartrate (Lopressor) 12.5 mg PO QPM [facility] Last Admin: 01/11/18 20:05 Dose: 12.5 mg Nitroglycerin (Nitrostat) 0.4 mg SL Q5MIN PRN PRN Reason: Chest Pain Pantoprazole Sodium (Protonix) 40 mg PO DAILY [facility] Last Admin: 01/12/18 05:37 Dose: 40 mg Ranolazine (Ranexa) 500 mg PO BID [facility] Last Admin: 01/12/18 05:37 Dose: Not Given Tramadol HCl (Ultram) 50 mg PO Q6H PRN PRN Reason: Moderate Pain (4-6)
[2018-01-12] MEDS: Ezetimibe 10 MG TAB PO SCH (20:02)
[2018-01-12] MEDS: Atorvastatin Calcium 40 MG TAB PO SCH (20:02)
[2018-01-12] MEDS: Metoprolol Tartrate 25 MG TAB PO SCH (20:03)
[2018-01-13] MEDS: Levothyroxine Sodium 100 MCG TAB PO SCH (05:24)
[2018-01-13] MEDS: Fluticasone Propionate Nasal Spray 16 gm Bottle NASAL SCH (08:34)
[2018-01-13] MEDS: Aspirin 81 mg Enteric Coated Tablet PO SCH (08:35)
[2018-01-13] MEDS: Clopidogrel Bisulfate 75 MG TAB PO SCH (08:35)
[2018-01-13] MEDS: Lisinopril 5 MG TAB PO SCH (08:35)
[2018-01-13 11:45] VITALS: BP 133/62; TEMP 98.4
--- NOTE | 2018-01-14 00:53 | DIS ---
DATE OF ADMISSION: 01/11/2018 DATE OF DISCHARGE: 01/13/2018 DISCHARGE DIAGNOSES: 1. Unstable angina. 2. Shortness of breath on exertion. 3. Hypertension. 4. Coronary artery disease. 5. Hypothyroidism. HOSPITAL COURSE: The patient is a pleasant 72-year-old female, who initially presented to the hospit al with complaints of chest tightness and shortness of breath on exertion. The patient was seen by C ardiology and underwent a cardiac catheterization. Initially cardiac enzymes were negative. The pat ient underwent a cardiac catheterization, which indicated just severe distal LAD diffuse disease. No intervention was done. 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 This was noted. Patient was put on Ranexa 500 mg p.o. b.i.d. and also will follow up with Dr. Belle in 1-2 months. PHYSICAL EXAMINATION: VITAL SIGNS: Temperature 98.6, 63, 16, 92% room air, 119/60. GENERAL: She is awake, alert, and oriented. She is in no apparent distress. CARDIOVASCULAR: S1, S2 present. No murmurs, rubs, or gallops. ABDOMEN: Soft, nontender. Bowel sounds are present x2. EXTREMITIES: No edema. Her right groin dressing is intact. She has got good pedal pulses to that r ight leg. DISCHARGE MEDICATIONS: The patient will be sent home with, 1. Plavix 75 mg daily. 2. Ranexa 500 mg p.o. b.i.d. 3. Lasix 20 mg daily. 4. Atorvastatin 80 mg daily. 5. Zetia 10 mg at bedtime. 6. Lisinopril 5 mg daily. 7. Aspirin 81 mg daily. 8. Flonase 1 spray daily. 9. Lopressor 12.5 q.p.m. 10. Protonix 40 mg daily. 11. Levothyroxine 100 mcg daily.
== END 2018-01-13 12:06 | disposition home or self-care (01) ==
LOC: SCSER 19:32 → 2SW 21:36
PROVIDERS: ADMIT Hospitalist; ATTEND Hospitalist
DX: I25.110 Atherosclerotic heart disease of native coronary artery with unstable angina pectoris (principal); I11.0 Hypertensive heart disease with heart failure; I50.9 Heart failure, unspecified; E03.9 Hypothyroidism, unspecified; E78.5 Hyperlipidemia, unspecified; E66.9 Obesity, unspecified; I73.9 Peripheral vascular disease, unspecified; Z87.891 Personal history of nicotine dependence; Z88.5 Allergy status to narcotic agent; Z88.2 Allergy status to sulfonamides; Z95.1 Presence of aortocoronary bypass graft; Z79.82 Long term (current) use of aspirin; Z79.899 Other long term (current) drug therapy; Z79.02 Long term (current) use of antithrombotics/antiplatelets; Z95.5 Presence of coronary angioplasty implant and graft; Z68.33 Body mass index [BMI] 33.0-33.9, adult
CPT/HCPCS: 71045; 71275; 80048; 80053; 82550; 82553; 83690; 83880; 84484 ×3; 85025 ×2; 85379; 93005; 93455; 93567; 94760; 96360; 96361 ×3; 96372; 99285; C1769; G0378 ×2; 36415; 99152; 99153; J1644; J1650; J2001; J2250; J3010

== ENCOUNTER 2018-05-02 19:39 | Emergency (ER) | payer MEDICARE ==
[2018-05-02] MEDS ORDERED: Ibuprofen 600 MG TAB ONE (19:52)
--- NOTE | 2018-05-02 22:04 | ULT ---
LEFT LOWER EXTREMITY VENOUS DOPPLER WITH SPECTRAL ANALYSIS AND COLOR FLOW EVALUATION: 05/02/18 HISTORY: Left lower extremity pain with pain greatest in the inner thigh region. FINDINGS: [place] scale, color flow, doppler evaluation, with spectral analysis of the left lower extremity venous structures is performed with 2D imaging. The left lower extremity common femoral, superficial femora l, popliteal, posterior tibial, most proximal greater saphenous and profunda femoral veins are imaged . There is normal lumen compressibility, flow, and augmentation in the visualized deep venous structure s of the left lower extremity. IMPRESSION: No evidence of a DVT involving the visualized deep venous structures left lower extremity. POS: [facility]
== END 2018-05-02 21:04 | disposition home or self-care (01) ==
LOC: SCSER 19:39
DX: L90.5 Scar conditions and fibrosis of skin (principal); E03.9 Hypothyroidism, unspecified; E78.5 Hyperlipidemia, unspecified; I11.0 Hypertensive heart disease with heart failure; I50.9 Heart failure, unspecified; I25.2 Old myocardial infarction; Z87.891 Personal history of nicotine dependence; Z79.899 Other long term (current) drug therapy; Z79.82 Long term (current) use of aspirin

== ENCOUNTER 2018-06-11 12:13 | Observation (INO) | payer MEDICARE ==
[2018-06-11 12:38] LABS: #Eosinphils 0.3 thou/uL (0.0-0.7); #Lymphocytes 2.4 thou/uL (1.20-3.40); #Monocytes 0.6 thou/uL (0.11-0.59); #Neutrophils 4.7 thou/uL (1.40-6.50); %Basophils 0.2 % (0.0-1.0); %Eosinophils 3.4 % (0.0-10.0); %Lymphocytes 29.5 % (21.0-51.0); %Neutrophils 58.9 % (42.0-75.0); Hemoglobin 13.1 g/dL (12.0-16.0); Mean Corpuscular HGB CONC 33.6 g/dL (32.0-36.0); Mean Corpuscular Hemoglobin 33.1 pg (27.0-31.0); Mean Corpuscular Volume 98.5 fL (78.0-98.0); Mean Platelet Volume 6.1 fL (7.4-10.4); Platelet Count 203 thou/uL (130-400); RBC Distribution Width 12.4 % (11.5-14.5); Red Blood Cell (RBC) Count 3.96 mill/uL (4.20-5.40)
[2018-06-11 13:02] LABS: ALT (SGPT) 19 U/L (8-55); AST (SGOT) 17 U/L (5-34); Albumin 4.4 g/dL (3.4-4.8); Alkaline Phosphatase 67 U/L (40-150); Anion Gap 11 mmol/L (10-20); BUN (Urea Nitrogen) 21 mg/dL (9.8-20.1); Bilirubin, Total 0.4 mg/dL (0.2-1.2); CK (CPK) 58 U/L (29-168); Calc. Creatinine Clearance 0 mL/min (70-130); Calcium 9.3 mg/dL (7.8-10.44); Carbon Dioxide 27 mmol/L (23-31); Chloride 105 mmol/L (98-107); Estimated GFR-MDRD 66; Globulin 3.1 g/dL (2.4-3.5); Glucose 112 mg/dL (83-110); Lipase 48 U/L (8-78); Protein, Total 7.5 g/dL (6.0-8.3); Sodium 139 mmol/L (136-145)
[2018-06-11 13:06] LABS: CKMB 0.6 ng/mL (0-6.6); Troponin I Less than 0.010 ng/mL (< 0.028)
[2018-06-11] MEDS ORDERED: Aspirin 325 MG TAB ONE (13:09)
--- NOTE | 2018-06-11 13:30 | RAD ---
SINGLE VIEW OF THE CHEST: COMPARISON: 01/10/2018. HISTORY: Chest pain in the left upper chest. FINDINGS: A single view of the chest shows a normal-size cardiomediastinal silhouette. The patient is status p ost sternotomy. There is no evidence of consolidation, mass, or pleural effusion. IMPRESSION: No evidence of acute cardiopulmonary disease. POS: [facility]
[2018-06-11] MEDS ORDERED: Acetaminophen 325 MG TAB PO PRN (14:22)
[2018-06-11 16:23] LABS: Troponin I Less than 0.010 ng/mL (< 0.028)
[2018-06-11 17:57] VITALS: BMI 33.4
[2018-06-11 19:52] LABS: Troponin I Less than 0.010 ng/mL (< 0.028)
[2018-06-11] MEDS: Famotidine 20 MG TAB PO SCH (21:16)
--- NOTE | 2018-06-11 22:29 | HP ---
PRIMARY CARE PHYSICIAN: Dr. Cota. CHIEF COMPLAINT: Chest pain. HISTORY OF PRESENT ILLNESS: The patient is a 73-year-old female with a significant cardiac history who was in her normal state of health today when around 11 o' clock this morning she experienced several minutes of sharp chest pain. Denies any diaphoresis or any shortness of breath, it lasted several minutes. Denies any current chest pain. The patient has had a CABG x4 vessel in 2012 and had a cardiac cath in January of this year. 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 The patient had AAA repair in 2010, had an echocardiogram in December of this year. EKG showed some inverted T-waves. First troponin was undetectable. Based on presentation and cardiac history, the patient will be admitted to the observation unit for further management. REVIEW OF SYSTEMS: CONSTITUTIONAL: The patient denies any fever, chills, or generalized weakness. RESPIRATORY: Denies any cough, sputum production. No shortness of breath. CARDIOVASCULAR: Did have some chest pain earlier today, describes as sharp, substernal. Denies any palpitations. GASTROINTESTINAL: Denies any abdominal pain, nausea, vomiting, diarrhea, or constipation. GENITOURINARY: Female. Denies any dysuria, any urine changes. EXTREMITIES: Denies any leg swelling. NEUROLOGIC: Denies any dizziness, headache, or lightheadedness. Denies any focal weakness or motor changes. All other systems reviewed and negative, except findings above. PAST MEDICAL HISTORY: Includes coronary artery disease, status post CABG; history of AAA repair; history of hypothyroidism; hyperlipidemia; high cholesterol; hypertension; chronic back pain; and congestive heart failure. PAST SURGICAL HISTORY: History of CABG x4 vessels in 2012, AAA repair by Dr. George in 2010. Reports cholecystectomy, hysterectomy, and cardiac stents x1. PSYCHIATRIC HISTORY: No previous history. SOCIAL HISTORY: No alcohol or tobacco. Lives at home with her family. FAMILY HISTORY: Mother with a stroke. Father with coronary artery disease. ALLERGIES: KNOWN ALLERGIES; ALBUTEROL, CODEINE, AND SULFA. MEDICATIONS: Reported medications include; 1. Irbesartan. 2. Zetia. 3. Pantoprazole. 4. Metoprolol. 5. Aspirin. 6. Levothyroxine. 7. Lisinopril. 8. Lasix. 9. Plavix. PHYSICAL EXAMINATION: VITAL SIGNS: Blood pressure 149/83, pulse 72, respirations 18, temperature 97.9 , O2 sats are 97% on room air. HEENT: Head is atraumatic and normocephalic. Eyes, eyelids are normal to inspection. Pupils are equally round and reactive to light. No photophobia. Conjunctivae are normal. ENT; mouth exam is normal, mucous membranes are moist. NECK: Normal range of motion. Trachea is midline. RESPIRATORY/CHEST: Breath sounds are clear. No respiratory distress is noted. No wheezing. No rales. CARDIOVASCULAR: Heart sounds are normal S1 and S2. No murmurs, rub, or gallop. ABDOMEN: Female. Abdomen is nontender. Liver is normal. No distention. BACK: Normal inspection. Range of motion is normal. No tenderness. EXTREMITIES: Upper extremities, normal inspection, normal range of motion, normal strength bilaterally, sensation intact bilaterally, radial pulses are normal bilaterally. Lower extremities; inspection is normal, range of motion is normal , motor strength is normal, sensation and pulses are intact bilaterally. NEUROLOGIC: Speech is normal. Cranial nerves are intact. No focal motor or sensory deficits are noted. SKIN: Warm, dry, normal in color. No rash. IMAGING: Chest x-ray, impression is no evidence of acute cardiopulmonary disease. EKG; normal sinus rhythm, 79 beats per minute, no ectopics, conduction is normal , inverted T-waves. LABORATORY DATA: CK-MB is 0.6. Troponin I is in the undetectable range. Lipase is 48. CK is 58. Sodium 139, potassium 4.0, chloride is 105, gap is 11, BUN is 21 , creatinine is 0.85, estimated GFR is 66, glucose is 112, calcium 9.3. Liver enzymes are unremarkable. White blood cell count is 8.0, red blood cell count is 3.96, hemoglobin is 13.1, hematocrit is 39.0, platelet count is 203. IMPRESSION AND PLAN: 1. Chest pain. We will trend out troponins x3. We will ask Dr. Belle to consult. 2. Hypothyroidism. We will continue home medications. 3. Hyperlipidemia. We will continue home medications. 4. Hypertension. We will continue home medications. Hospital course will depend on clinical findings. Job ID: [id number] [facility]
[2018-06-12 06:45] LABS: #Eosinphils 0.3 thou/uL (0.0-0.7); #Lymphocytes 1.8 thou/uL (1.20-3.40); #Monocytes 0.5 thou/uL (0.11-0.59); #Neutrophils 4.2 thou/uL (1.40-6.50); %Basophils 0.1 % (0.0-1.0); %Eosinophils 3.9 % (0.0-10.0); %Lymphocytes 26.5 % (21.0-51.0); %Monocytes 7.1 % (0.0-10.0); %Neutrophils 62.3 % (42.0-75.0); Hemoglobin 12.5 g/dL (12.0-16.0); Mean Corpuscular HGB CONC 33.7 g/dL (32.0-36.0); Mean Corpuscular Hemoglobin 33.3 pg (27.0-31.0); Mean Corpuscular Volume 98.8 fL (78.0-98.0); Mean Platelet Volume 6.1 fL (7.4-10.4); Platelet Count 176 thou/uL (130-400); RBC Distribution Width 12.5 % (11.5-14.5); Red Blood Cell (RBC) Count 3.75 mill/uL (4.20-5.40); White Blood Cell (WBC) Count 6.8 thou/uL (4.8-10.8)
[2018-06-12 06:56] LABS: ALT (SGPT) 19 U/L (8-55); AST (SGOT) 18 U/L (5-34); Alkaline Phosphatase 59 U/L (40-150); Anion Gap 11 mmol/L (10-20); BUN (Urea Nitrogen) 16 mg/dL (9.8-20.1); Bilirubin, Total 0.6 mg/dL (0.2-1.2); Calc. Creatinine Clearance 78 mL/min (70-130); Calcium 9.1 mg/dL (7.8-10.44); Carbon Dioxide 26 mmol/L (23-31); Chloride 106 mmol/L (98-107); Estimated GFR-MDRD 68; Glucose 127 mg/dL (83-110); Potassium 3.7 mmol/L (3.5-5.1); Sodium 139 mmol/L (136-145)
[2018-06-12] MEDS: Lisinopril 5 MG TAB PO SCH (10:00)
[2018-06-12] MEDS: Clopidogrel Bisulfate 75 MG TAB PO SCH (10:00)
[2018-06-12] MEDS: Fluticasone Propionate Nasal Spray 16 gm Bottle NASAL SCH (10:01)
[2018-06-12] MEDS: Famotidine 20 MG TAB PO SCH ×2 (10:01→21:16)
[2018-06-12] MEDS: Aspirin 81 mg Enteric Coated Tablet PO SCH (10:01)
--- NOTE | 2018-06-12 18:06 | PDOC.PN ---
- Subjective Encounter Start Date: 06/12/18 Encounter Start Time: 10:00 Subjective: Follow up on admission for chest pain -: Examined, patient resting in bed -: Denies CP, SOB today - Objective MAR Reviewed: Yes Vital Signs & Weight: Vital Signs (12 hours) Temp Pulse Resp BP Pulse Ox 06/12/18 15:31 97.9 F 71 18 105/51 L 93 L 06/12/18 11:43 98.1 F 66 20 120/81 94 L 06/12/18 07:58 97.5 F L 66 20 130/61 93 L Weight Weight 80.331 kg I&O: 06/11/18 06/12/18 06/13/18 06:59 06:59 06:59 Intake Total 660 Balance 660 Result Diagrams: 06/12/18 06:30 06/12/18 06:30 Phys Exam - Physical Examination Constitutional: NAD HEENT: PERRLA, moist MMs Neck: no nodes, no JVD Respiratory: clear to auscultation bilateral Cardiovascular: RRR, no significant murmur Gastrointestinal: soft, non-tender, positive bowel sounds Musculoskeletal: no edema, pulses present Neurological: non-focal, normal sensation Lymphatic: no nodes Psychiatric: normal affect, A&O x 3 Skin: normal turgor, cap refill <2 seconds Dx/Plan (1) Chest pain due to CAD Code(s): R07.9 - CHEST PAIN, UNSPECIFIED; I25.10 - ATHSCL HEART DISEASE OF [place] CORONARY ARTERY W/O ANG PCTRS Status: Acute (2) Coronary artery disease Code(s): I25.10 - ATHSCL HEART DISEASE OF [place] CORONARY ARTERY W/O ANG PCTRS Status: Chronic (3) Dizziness Code(s): R42 - DIZZINESS AND GIDDINESS Status: Chronic (4) Hypertension Code(s): I10 - ESSENTIAL (PRIMARY) HYPERTENSION Status: Chronic (5) Hypothyroidism Code(s): E03.9 - HYPOTHYROIDISM, UNSPECIFIED Status: Chronic (6) Obesity (BMI 30-39.9) Code(s): E66.9 - OBESITY, UNSPECIFIED Status: Chronic - Plan cont current plan of care, DVT proph w/lovenox -: Troponins x3 are undetectable, -: Dr. Belle has increased her Renexa, awaiting consultation -: Will monitor VS and labs * .
[2018-06-12] MEDS ORDERED: Ezetimibe 10 MG TAB PO SCH (21:00)
[2018-06-12] MEDS ORDERED: Atorvastatin Calcium 40 MG TAB PO SCH (21:00)
[2018-06-13 04:07] LABS: #Eosinphils 0.3 thou/uL (0.0-0.7); #Lymphocytes 1.8 thou/uL (1.20-3.40); #Monocytes 0.6 thou/uL (0.11-0.59); %Basophils 0.4 % (0.0-1.0); %Eosinophils 4.6 % (0.0-10.0); %Lymphocytes 27.1 % (21.0-51.0); %Monocytes 8.4 % (0.0-10.0); %Neutrophils 59.5 % (42.0-75.0); Hemoglobin 12.8 g/dL (12.0-16.0); Mean Corpuscular HGB CONC 33.9 g/dL (32.0-36.0); Mean Corpuscular Hemoglobin 33.5 pg (27.0-31.0); Mean Platelet Volume 6.6 fL (7.4-10.4); Platelet Count 168 thou/uL (130-400); RBC Distribution Width 12.7 % (11.5-14.5); Red Blood Cell (RBC) Count 3.82 mill/uL (4.20-5.40); White Blood Cell (WBC) Count 6.7 thou/uL (4.8-10.8)
[2018-06-13 04:27] LABS: ALT (SGPT) 19 U/L (8-55); AST (SGOT) 22 U/L (5-34); Albumin 3.8 g/dL (3.4-4.8); Alkaline Phosphatase 59 U/L (40-150); Anion Gap 12 mmol/L (10-20); BUN (Urea Nitrogen) 17 mg/dL (9.8-20.1); Bilirubin, Total 0.7 mg/dL (0.2-1.2); Calc. Creatinine Clearance 76 mL/min (70-130); Calcium 9.2 mg/dL (7.8-10.44); Carbon Dioxide 24 mmol/L (23-31); Chloride 105 mmol/L (98-107); Estimated GFR-MDRD 68; Globulin 3.2 g/dL (2.4-3.5); Glucose 100 mg/dL (83-110); Potassium 4.4 mmol/L (3.5-5.1); Sodium 137 mmol/L (136-145)
--- NOTE | 2018-06-13 04:33 | CON ---
DATE OF CONSULTATION: HISTORY OF PRESENT ILLNESS: Galina Romano is a 73-year-old female, who has a history of CABG x4 in November of 2012. There was AGUERO to the LAD that measured less than 1 mm, saphenous vein graft to the first diagonal, saphenous vein graft to the second diagonal, and saphenous vein graft to the right posterior lateral artery. Circumflex had small obtuse marginals that could not be bypassed. She presented in January 2018 with increasing shortness of breath. Echo showed ejection fraction of 45% to 50% with diastolic dysfunction. She also had some chest pain and ultimately, a decision was made to have her undergo cardiac catheterization, which was performed by Dr. Jaffe in my absence. This revealed 80% proximal LAD disease, patent grafts to the first diagonal, patent grafts to the second diagonal. The circumflex had diffuse disease that could not be intervened. The graft to the right posterolateral was patent. There was difficulty in entering the left subclavian vein due to an aortic ulcer and also a decision was made not to further pursue the AGUERO. It was felt best to treat her medically. She was placed on Ranexa 500 mg b.i.d. She was seen in the office two weeks later and this was increased to 1000 b.i.d.; however, she called back to say that she "felt funny" and so she went back to 500 mg b.i.d. She now is admitted with 15 minutes of chest pain. Cardiac enzymes have been negative. This morning, her Ranexa was increased to 1000 b.i.d. PAST MEDICAL HISTORY: Hyperlipidemia, coronary artery disease, peripheral vascular disease, hypothyroidism, hypertension, obesity, GERD. OPERATIONS: CABG x4, aortic aneurysm repair, hysterectomy and cholecystectomy. MEDICATIONS: 1. Ranexa 500 mg b.i.d. 2. Aspirin 81 daily. 3. Atorvastatin 80 at bedtime. 4. Plavix 75 daily. 5. Zetia 10 mg at bedtime. 6. Levothyroxine 1000 mcg q.a.m. 7. Lisinopril 5 mg daily. 8. Metoprolol 25 daily. 9. Protonix 40 daily. ALLERGIES: ALBUTEROL, CODEINE, AND SULFA. SOCIAL HISTORY: She smoked one pack per day for 40 years, but quit five or six years ago. FAMILY HISTORY: Positive for coronary artery disease. REVIEW OF SYSTEMS: A 12-point review of systems otherwise unremarkable. PHYSICAL EXAMINATION: VITAL SIGNS: Blood pressure 106/53, pulse of 67. HEENT: PERRL. NECK: Supple. CHEST: Clear. CARDIAC EXAMINATION: S1 and S2 normal without any S3, S4, or murmurs. ABDOMEN: Normal bowel sounds without tenderness or organomegaly. EXTREMITIES: Revealed no clubbing, cyanosis, or edema. NEUROLOGIC: Grossly intact. SKIN: Warm and dry. LABORATORY DATA: EKG revealed normal sinus rhythm with nonspecific T-wave changes with inverted T-wave in V3 and V4. Cardiac enzymes are unremarkable. Hemoglobin 12.5, hematocrit 37.1, white count 6800, platelets 176,000. Sodium 139, potassium 3.7, chloride 106, carbon dioxide 26, BUN 16, creatinine 0.83. IMPRESSION: 1. Probable episode of angina lasting 15 minutes. 2. Patent grafts (except the left internal mammary artery could not be adequately cannulated) in January 2018. She does have diffuse circumflex disease and could not be bypassed, also distal left anterior descending disease. It was felt best to continue to treat her medically. 3. Hypertension. 4. Hyperlipidemia. 5. Gastroesophageal reflux disease. 6. Peripheral vascular disease. 7. Hypothyroidism. 8. Obesity. PLAN: The patient's Ranexa will be increased to 1000 mg b.i.d. If she increases this and is ambulatory in the allen without further symptoms, then I feel she may be able to be discharged on a higher dose of Ranexa. Job ID: [id number]
[2018-06-13] MEDS ORDERED: Levothyroxine Sodium 100 MCG TAB PO SCH (06:00)
[2018-06-13] MEDS ORDERED: Levothyroxine Sodium 88 MCG TAB PO SCH (06:00)
[2018-06-13] MEDS: Lisinopril 5 MG TAB PO SCH (08:28)
[2018-06-13] MEDS: Fluticasone Propionate Nasal Spray 16 gm Bottle NASAL SCH (08:28)
[2018-06-13] MEDS: Clopidogrel Bisulfate 75 MG TAB PO SCH (08:28)
[2018-06-13] MEDS: Aspirin 81 mg Enteric Coated Tablet PO SCH (08:29)
[2018-06-13] MEDS: Famotidine 20 MG TAB PO SCH (08:29)
[2018-06-13 11:52] VITALS: BP 137/63; TEMP 97.7
--- NOTE | 2018-06-15 07:59 | DIS ---
DATE OF ADMISSION: 06/11/2018 DATE OF DISCHARGE: 06/13/2018 PRIMARY CARE PHYSICIAN: Dr. Nathanael Cota. CONSULTING PHYSICIANS: 1. Dr. David Belle, Cardiology. DISCHARGE DIAGNOSES: 1. Dyspnea on exertion. 2. Chest pain due to coronary artery disease. 3. Coronary artery disease. 4. Hypertension. PROCEDURES: Chest x-ray done on June 11, 2018. Impression, no evidence of acute cardiopulmonary disease. FBC and chem panel unremarkable. Serial TNI x 3 negative. HOSPITAL COURSE: The patient admitted on June 11, 2018 with complaints of chest pain, who has a significant cardiac history. Previous CABG x4 vessels on 2012 and a cardiac cath in January 2018, under Dr. Belle of Cardiology. AAA repaired in 2010 with an echocardiogram done in December 2017. EKG done in the ED showed inverted T-waves. Initial TNI undetectable. The patient admitted for continued observation and management. Remaining serial TNI also undetectable. The patient was seen by Dr. Belle during her stay. Previous catheterization done in January 2018 demonstrated 80% proximal LAD disease, patent grafts to first diagonal and second diagonal. Circumflex with diffuse disease could not be intervened; therefore, the patient was placed on Ranexa 500 mg b.i.d. This was increased to 1000 mg b.i.d. 2 weeks later. However, the patient reported intolerance; therefore, it was reduced back to her [address] Belle has advised to increase Ranexa to 1000 mg b.i.d. In light of negative cardiac enzymes, patient is deemed amenable for discharge home today. She has been ambulatory without any further symptoms. REVIEW OF SYSTEMS: At the time of discharge, the patient denies any chest pain or shortness of breath. She has been able to continue ambulating without any difficulties. All other review of systems are negative. PHYSICAL EXAMINATION: VITAL SIGNS: Temperature 97.7, pulse 67, respirations 16, O2 sat 92% on room air, and blood pressure 137/63. CONSTITUTIONAL: NAD. HEENT: Pupils are equal, round, and reactive to light. Moist mucous membranes. NECK: No lymphadenopathy. No JVD. RESPIRATORY: Clear to auscultation bilaterally. No wheezes, rales, or rhonchi. CARDIOVASCULAR: Regular rate and rhythm. No significant murmur. GASTROINTESTINAL: Soft, nontender, and nondistended. Positive bowel sounds. MUSCULOSKELETAL: No edema. Pulses present. NEUROLOGIC: Nonfocal, normal sensation. LYMPHATIC: No lymphadenopathy. PSYCHIATRIC: Normal affect. Alert and oriented x3. SKIN: Normal turgor. Cap refill less than 2 seconds. ALLERGIES: 1. ALBUTEROL. 2. CODEINE. 3. SULFA. HOME MEDICATIONS: 1. Aspirin 81 mg p.o. daily. 2. Atorvastatin calcium 80 mg p.o. at bedtime. 3. Ezetimibe 10 mg p.o. at bedtime. 4. Fluticasone propionate 1 spray each naris daily. 5. Levothyroxine sodium 88 mcg p.o. q.a.m. 6. Metoprolol succinate 25 mg p.o. daily. 7. Pantoprazole 40 mg p.o. daily. 8. Clopidogrel bisulfate 75 mg p.o. daily. 9. Lisinopril 5 mg p.o. daily. 10. Ranexa 1000 mg p.o. b.i.d., increased from previous dose of Ranexa 500 mg p.o. b.i.d. CONDITION: The patient is currently stable and ambulating without difficulties. Activity, ad joey. Heart-healthy diet. DISPOSITION: Discharged to home. FOLLOWUP: 1. Follow up with Dr. Cota within 8 weeks. 2. Follow up with Dr. Belle in 2 to 3 weeks. The patient aware and happy with plan as described above. Advised to seek medical attention with any new or worsening symptoms. Job ID: [id number] MTDD
--- NOTE | 2018-06-16 14:07 | EKG ---
Test Reason : CHEST PAIN Blood Pressure : / mmHG Vent. Rate : 079 BPM Atrial Rate : 079 BPM P-R Int : 168 ms QRS Dur : 090 ms QT Int : 396 ms P-R-T Axes : 028 007 015 degrees QTc Int : 454 ms Normal sinus rhythm Nonspecific T wave abnormality Abnormal ECG Anterior ischemia Confirmed by WILFREDO ORTEGA, INOCENTE Navarrete ([id number]), book editor MOE VARELA ([id number]) on 06/16/2018 2:07:06 PM Referred By: Confirmed By:INOCENTE VILLALOBOS MD
== END 2018-06-13 12:23 | disposition home or self-care (01) ==
LOC: ERS 12:13 → 2SW 13:52 → ERHOLD 13:53 → 2SW 17:53
PROVIDERS: ADMIT Internal Medicine; ATTEND Internal Medicine
DX: I25.10 Atherosclerotic heart disease of native coronary artery without angina pectoris (principal); R07.9 Chest pain, unspecified; E03.9 Hypothyroidism, unspecified; E78.5 Hyperlipidemia, unspecified; E78.00 Pure hypercholesterolemia, unspecified; G89.29 Other chronic pain; M54.9 Dorsalgia, unspecified; I11.0 Hypertensive heart disease with heart failure; I50.9 Heart failure, unspecified; I73.9 Peripheral vascular disease, unspecified; R06.09 Other forms of dyspnea; E66.9 Obesity, unspecified; Z68.32 Body mass index [BMI] 32.0-32.9, adult; Z95.1 Presence of aortocoronary bypass graft; Z98.890 Other specified postprocedural states; Z95.5 Presence of coronary angioplasty implant and graft; Z88.2 Allergy status to sulfonamides; Z88.5 Allergy status to narcotic agent; Z88.8 Allergy status to other drugs, medicaments and biological substances; Z79.02 Long term (current) use of antithrombotics/antiplatelets; Z79.82 Long term (current) use of aspirin; Z79.899 Other long term (current) drug therapy
CPT/HCPCS: 71045; 80053 ×3; 82550; 82553; 83690; 84484 ×2; 85025 ×3; 93005; 94760; 99285; G0378 ×2; 36415

== ENCOUNTER 2018-10-31 08:22 | Outpatient (CLI) | payer MEDICARE ==
[2018-10-31] MEDS ORDERED: Iopamidol 370 76% 100 ML VIAL ONE (09:00)
--- NOTE | 2018-10-31 09:34 | CT ---
CT HEAD WITH AND WITHOUT CONTRAST: Technique: Multiple axial tomograms were obtained through the head both pre and post IV contrast admi nistration. Indications: Headache. Gait instability. Comparison: Noncontrast head CT, June 2013. FINDINGS: Ventricles have normal size and position. An area of ischemic change in the deep white matter of the left frontal lobe adjacent to the anterior horn is stable. Mild chronic ischemic change is seen in th e deep white matter bilaterally, stable. No mass, hemorrhage, or infarct apparent. No abnormal enhanc ement identified on post contrast study. Sinuses and mastoids are clear. IMPRESSION: 1. Mild chronic ischemic white matter change which appears stable from prior exam. No acute abnormali ty. POS: [facility]
== END 2018-10-31 08:23 | disposition home or self-care (01) ==
LOC: SCSCT 08:22
PROVIDERS: ATTEND Family Medicine
DX: R26.89 Other abnormalities of gait and mobility (principal); I67.82 Cerebral ischemia
CPT/HCPCS: 70470; 82565; Q9967

== ENCOUNTER 2020-10-01 08:08 | Outpatient (CLI) | payer MEDICARE | END 2020-10-01 08:09 | disposition home or self-care (01) | LOC: PET 08:08 | PROVIDERS: ATTEND Internal Medicine Pulmonary Disease | DX: R91.1 Solitary pulmonary nodule (principal); R91.8 Other nonspecific abnormal finding of lung field | CPT/HCPCS: 78815; A9552 ==

== ENCOUNTER 2020-10-16 15:33 | Outpatient (CLI) | payer MEDICARE ==
[2020-10-16 17:06] LABS: Hemoglobin 12.3 g/dL (12.0-15.5); Mean Corpuscular HGB CONC 32.3 g/dL (32.0-36.0); Mean Corpuscular Hemoglobin 32.5 pg (27.0-33.0); Mean Corpuscular Volume 100.8 fl (81.6-98.3); Mean Platelet Volume 8.7 fl (7.4-10.4); Platelet Count 160 10x3/uL (150-450); RBC Distribution Width 13.8 % (11.5-14.5); Red Blood Cell (RBC) Count 3.78 10x6/uL (3.90-5.03); White Blood Cell (WBC) Count 5.7 10x3/uL (3.5-10.5)
[2020-10-16 17:17] LABS: ALT (SGPT) 21 U/L (8-55); AST (SGOT) 13 U/L (5-34); Albumin 4.2 g/dL (3.4-4.8); Alkaline Phosphatase 59 U/L (40-110); Anion Gap 13 mmol/L (10-20); BUN (Urea Nitrogen) 17 mg/dL (9.8-20.1); Bilirubin, Total 0.3 mg/dL (0.2-1.2); Calc. Creatinine Clearance 0 mL/min (70-130); Calcium 8.8 mg/dL (7.8-10.44); Carbon Dioxide 27 mmol/L (23-31); Chloride 108 mmol/L (98-107); Globulin 2.7 g/dL (2.4-3.5); Glucose 127 mg/dL (83-110); Potassium 4.2 mmol/L (3.5-5.1); Protein, Total 6.9 g/dL (5.8-8.1); Sodium 144 mmol/L (136-145)
[2020-10-17 01:57] LABS: SARS-CoV-2 PCR by NAA Not Detected (NotDetected)
== END 2020-10-16 15:34 | disposition home or self-care (01) ==
LOC: LAB 15:33
PROVIDERS: ATTEND Internal Medicine Cardiovascular Disease
DX: Z01.812 Encounter for preprocedural laboratory examination (principal); Z20.822 Contact with and (suspected) exposure to COVID-19; R94.39 Abnormal result of other cardiovascular function study
CPT/HCPCS: 80053; 85027; 87635; U0003; U0005

== ENCOUNTER → 2020-10-20 | Day surgery (SDC) | payer MEDICARE ==
[2020-10-19 12:23] VITALS: BMI 33.6
[~2020-10-20] MED LIST changes: +Fentanyl 100 MCG/2 ML VIAL ONE; +Heparin 10,000 UNITS/ 10 ML VIAL ONE; +Iopamidol 370 76% 50 ML VIAL FS ONE; +Lidocaine 1% (PF) 30 ML VIAL ONE; +Midazolam HCl 2 mg/2 ml Vial ONE; +Protamine Sulfate 50 MG/5 ML VIAL ONE
[2020-10-20 07:37] LABS: Cardiac Risk 2.2 (Less than 4.5)
== END ==
LOC: CCL 10-16 15:25
PROVIDERS: ATTEND Internal Medicine Cardiovascular Disease
PROC: 4A023N7 Measurement of Cardiac Sampling and Pressure, Left Heart, Percutaneous Approach (ICD-10-PCS; principal; 2020-10-20)
PROC: B2111ZZ Fluoroscopy of Multiple Coronary Arteries using Low Osmolar Contrast (ICD-10-PCS; 2020-10-20)
DX: I25.10 Atherosclerotic heart disease of native coronary artery without angina pectoris (principal); I25.82 Chronic total occlusion of coronary artery; E03.9 Hypothyroidism, unspecified; I10 Essential (primary) hypertension; E78.00 Pure hypercholesterolemia, unspecified; I73.9 Peripheral vascular disease, unspecified; I25.2 Old myocardial infarction; G25.81 Restless legs syndrome; Z79.02 Long term (current) use of antithrombotics/antiplatelets; Z79.82 Long term (current) use of aspirin; Z79.899 Other long term (current) drug therapy; K21.9 Gastro-esophageal reflux disease without esophagitis; Z88.2 Allergy status to sulfonamides; Z88.5 Allergy status to narcotic agent; Z88.8 Allergy status to other drugs, medicaments and biological substances; Z95.1 Presence of aortocoronary bypass graft; Z95.5 Presence of coronary angioplasty implant and graft
CPT/HCPCS: 76942; 80061; 85347; 93005; 93010; 93459; 99152; 99153; J1644; J2001; J2250; J2720; J3010; Q9967

== ENCOUNTER 2020-10-28 11:18 | Outpatient (CLI) | payer MEDICARE | END 2020-10-28 11:19 | disposition home or self-care (01) | LOC: LABBT 11:18 | PROVIDERS: ATTEND Thoracic Surgery (Cardiothoracic Vascular Surgery) | DX: Z01.812 Encounter for preprocedural laboratory examination (principal); C34.12 Malignant neoplasm of upper lobe, left bronchus or lung; Z20.822 Contact with and (suspected) exposure to COVID-19 | CPT/HCPCS: 80048; 85027; 86850; 86900; 86901; 86920; U0003; U0005; 87635 ==

== ENCOUNTER 2020-10-28 11:30 | Inpatient (IN) | payer MEDICARE ==
[2020-10-28 15:07] LABS: Anion Gap 15 mmol/L (10-20); BUN (Urea Nitrogen) 18 mg/dL (9.8-20.1); Calc. Creatinine Clearance 0 mL/min (70-130); Calcium 9.1 mg/dL (7.8-10.44); Carbon Dioxide 27 mmol/L (23-31); Chloride 106 mmol/L (98-107); Glucose 88 mg/dL (83-110); Potassium 4.7 mmol/L (3.5-5.1); Sodium 143 mmol/L (136-145)
[2020-10-28 15:12] LABS: Hemoglobin 12.6 g/dL (12.0-15.5); Mean Corpuscular HGB CONC 31.9 g/dL (32.0-36.0); Mean Corpuscular Hemoglobin 31.7 pg (27.0-33.0); Mean Corpuscular Volume 99.5 fl (81.6-98.3); Platelet Count 189 10x3/uL (150-450); RBC Distribution Width 13.8 % (11.5-14.5); Red Blood Cell (RBC) Count 3.97 10x6/uL (3.90-5.03); White Blood Cell (WBC) Count 6.8 10x3/uL (3.5-10.5)
[2020-10-29 02:31] LABS: SARS-CoV-2 PCR by NAA Not Detected (NotDetected)
[2020-11-02] MEDS ORDERED: Midazolam HCl 2 mg/2 ml Vial ONE (06:28)
[2020-11-02] MEDS ORDERED: Fentanyl 100 MCG/2 ML VIAL ONE ×2 (06:28→10:41)
[2020-11-02] MEDS ORDERED: Sodium Chloride 0.9% 10 ML ONE (07:19)
[2020-11-02] MEDS ORDERED: Lidocaine 1% PF 5 ML VIAL ONE (07:42)
[2020-11-02] MEDS ORDERED: Glycopyrrolate 0.2 MG/ML 5 ML SYRINGE ONE (07:42)
[2020-11-02] MEDS ORDERED: Dexamethasone 20 MG/5 ML VIAL ONE (07:42)
[2020-11-02] MEDS ORDERED: Ondansetron PF 4 MG/2 ML Vial ONE (07:42)
[2020-11-02] MEDS ORDERED: Ketorolac Tromethamine 30 MG/ML VIAL ONE (07:42)
[2020-11-02] MEDS ORDERED: PHENYLEPHRINE-NS 100 MCG/ML 10 ML SYRINGE ONE (07:42)
[2020-11-02] MEDS ORDERED: Vecuronium 10 MG VIAL ONE (07:42)
[2020-11-02] MEDS ORDERED: PROPOFOL 200 MG/20 ML VIAL ONE (07:42)
[2020-11-02] MEDS ORDERED: Hydrocerin (Eucerin) Cream 120 gm Jar TOP PRN (08:00)
[2020-11-02] MEDS ORDERED: Promethazine HCl 25 MG SUPP PR PRN (08:00)
[2020-11-02] MEDS ORDERED: fentaNYL Citrate/PF 500 MCG, Bupivacaine 10 ML in Sodium Chloride 0.9% 80 ML EPIDURAL SCH (08:00)
[2020-11-02] MEDS ORDERED: traMADol HCl 50 MG TAB PO PRN ×2 (08:00)
[2020-11-02] MEDS ORDERED: diphenhydrAMINE 50 MG/ML VIAL IVP PRN (08:00)
[2020-11-02] MEDS ORDERED: Bupivacaine 0.25% 10 ML VIAL EPIDURAL PRN (08:00)
[2020-11-02] MEDS ORDERED: Promethazine HCl 25 MG/ML VIAL IM PRN (08:00)
[2020-11-02] MEDS ORDERED: Zolpidem Tartrate 5 MG TAB PO PRN (08:00)
[2020-11-02] MEDS ORDERED: HYDROcodone/Acetaminophen 5/325 mg Tablet PO PRN ×2 (08:00)
[2020-11-02] MEDS ORDERED: Naloxone HCl 0.4 mg/ml Vial IVP PRN (08:00)
[2020-11-02] MEDS ORDERED: Ondansetron PF 4 MG/2 ML Vial IVP PRN ×2 (08:00→11:38)
[2020-11-02] MEDS ORDERED: diphenhydrAMINE 50 MG/ML VIAL IM PRN (08:00)
[2020-11-02] MEDS ORDERED: Naloxone HCl 0.4 mg/ml Vial IV PRN (08:00)
[2020-11-02] MEDS ORDERED: diphenhydrAMINE 25 MG CAP PO PRN (08:00)
[2020-11-02] MEDS ORDERED: Ondansetron HCl/PF 4 MG/2 ML Vial IVP PRN (08:25)
[2020-11-02] MEDS ORDERED: Insulin Regular 300 UNITS/3 ML VIAL SC PRN (11:38)
[2020-11-02] MEDS ORDERED: Phenylephrine 40 MG in Sodium Chloride 0.9% 250 ML 250 ML IVPB PRN (11:38)
[2020-11-02] MEDS: Sodium Chloride 0.9% 1,000 ML IV SCH (11:57)
[2020-11-02] MEDS: Ketorolac Tromethamine 30 MG/ML VIAL IVP SCH ×3 (12:13→23:55)
[2020-11-02 12:24] VITALS: BMI 35.8
[2020-11-02] MEDS ORDERED: Albumin 25% 25 GM/100 ML BOT IVPB SCH (12:28)
[2020-11-02] MEDS: CEFAZOLIN 2 GM in Premix Bag 1 BAG IVPB SCH ×2 (15:59→23:57)
[2020-11-02] MEDS: Acetaminophen 500 MG TAB PO PRN (21:12)
[2020-11-02 23:05] LABS: Hemoglobin 10.1 g/dL (12.0-16.0)
[2020-11-03] MEDS: fentaNYL Citrate/PF 500 MCG, Bupivacaine 10 ML in Sodium Chloride 0.9% 80 ML EPIDURAL SCH ×2 (01:39→17:14)
[2020-11-03 04:25] LABS: #Monocytes 0.6 thou/uL (0.11-0.59); #Neutrophils 8.9 thou/uL (1.40-6.50); %Eosinophils 0.1 % (0.0-10.0); %Lymphocytes 9.6 % (21.0-51.0); %Monocytes 5.5 % (0.0-10.0); %Neutrophils 84.8 % (42.0-75.0); Hemoglobin 9.3 g/dL (12.0-16.0); Mean Corpuscular Hemoglobin 33.1 pg (27.0-31.0); Mean Platelet Volume 6.5 fL (7.4-10.4); Platelet Count 130 thou/uL (130-400); RBC Distribution Width 13.1 % (11.5-14.5); Red Blood Cell (RBC) Count 2.81 mill/uL (4.20-5.40); White Blood Cell (WBC) Count 10.5 thou/uL (4.8-10.8)
[2020-11-03 04:45] LABS: Anion Gap 11 mmol/L (10-20); BUN (Urea Nitrogen) 17 mg/dL (9.8-20.1); Calc. Creatinine Clearance 81 mL/min (70-130); Carbon Dioxide 26 mmol/L (23-31); Chloride 106 mmol/L (98-107); Glucose 118 mg/dL (83-110); Potassium 3.9 mmol/L (3.5-5.1); Sodium 139 mmol/L (136-145)
[2020-11-03] MEDS: Ketorolac Tromethamine 30 MG/ML VIAL IVP SCH ×4 (05:50→23:48)
[2020-11-03] MEDS: Sodium Chloride 0.9% 1,000 ML IV SCH (05:54)
[2020-11-03] MEDS: CEFAZOLIN 2 GM in Premix Bag 1 BAG IVPB SCH (08:55)
[2020-11-03] MEDS: Acetaminophen 500 MG TAB PO PRN (09:48)
[2020-11-03] MEDS ORDERED: Ketorolac Tromethamine 30 MG/ML VIAL ONE (11:40)
[2020-11-03] MEDS ORDERED: Dextrose 5% in Water 1,000 ML IV PRN (16:00)
[2020-11-03] MEDS ORDERED: Dextrose 50% Abboject 50 ML SYRINGE IVP PRN (16:00)
[2020-11-04] MEDS: Ketorolac Tromethamine 30 MG/ML VIAL IVP SCH (05:05)
[2020-11-04] MEDS: Sodium Chloride 0.9% 1,000 ML IV SCH (07:27)
[2020-11-04] MEDS: Acetaminophen 500 MG TAB PO PRN ×3 (08:57→20:26)
[2020-11-04] MEDS: fentaNYL Citrate/PF 500 MCG, Bupivacaine 10 ML in Sodium Chloride 0.9% 80 ML EPIDURAL SCH (10:57)
[2020-11-04] MEDS ORDERED: Furosemide 20 MG TAB PO SCH (17:30)
[2020-11-05] MEDS: fentaNYL Citrate/PF 500 MCG, Bupivacaine 10 ML in Sodium Chloride 0.9% 80 ML EPIDURAL SCH ×2 (03:31→19:57)
[2020-11-05] MEDS ORDERED: Potassium Chloride 20 MEQ TAB PO SCH (07:00)
[2020-11-05] MEDS ORDERED: Furosemide 20 MG TAB PO SCH (07:00)
[2020-11-05] MEDS: Acetaminophen 500 MG TAB PO PRN ×3 (07:19→20:53)
[2020-11-06] MEDS ORDERED: Polyethylene Glycol 3350 17 GM Packet PO SCH (09:00)
[2020-11-06] MEDS ORDERED: Bisacodyl 5 MG TAB PO SCH (09:00)
[2020-11-06 15:10] VITALS: BP 119/56; TEMP 99
[2020-11-06] MEDS: Acetaminophen 500 MG TAB PO PRN (17:50)
== END 2020-11-06 18:10 | disposition home or self-care (01) | DRG 165 ==
LOC: SURG A 11-02 06:12 → CCU 11-02 11:10 → 2NO 11-03 14:48
PROVIDERS: ADMIT Thoracic Surgery (Cardiothoracic Vascular Surgery); ATTEND Thoracic Surgery (Cardiothoracic Vascular Surgery)
PROC: 0BTG0ZZ Resection of Left Upper Lung Lobe, Open Approach (ICD-10-PCS; principal; 2020-11-02)
DX: C34.12 Malignant neoplasm of upper lobe, left bronchus or lung (principal); I25.10 Atherosclerotic heart disease of native coronary artery without angina pectoris; I10 Essential (primary) hypertension; E78.5 Hyperlipidemia, unspecified; E78.00 Pure hypercholesterolemia, unspecified; E03.9 Hypothyroidism, unspecified; J44.9 Chronic obstructive pulmonary disease, unspecified; Z20.822 Contact with and (suspected) exposure to COVID-19; Z95.1 Presence of aortocoronary bypass graft; Z79.899 Other long term (current) drug therapy; Z79.82 Long term (current) use of aspirin; Z90.710 Acquired absence of both cervix and uterus; Z90.49 Acquired absence of other specified parts of digestive tract; Z83.3 Family history of diabetes mellitus; Z82.3 Family history of stroke; Z82.49 Family history of ischemic heart disease and other diseases of the circulatory system; Z88.5 Allergy status to narcotic agent; Z87.891 Personal history of nicotine dependence; Z79.01 Long term (current) use of anticoagulants; Z79.890 Hormone replacement therapy; Z79.02 Long term (current) use of antithrombotics/antiplatelets; Z88.2 Allergy status to sulfonamides; Z88.8 Allergy status to other drugs, medicaments and biological substances
CPT/HCPCS: 36415; 36416; 71045; 80048; 81235; 85014; 85018; 85025; 85027; 86850; 86900; 86901; 87635; 88309; 88341; 88342; 88360; 88377; J0690; J1100; J1642; J1815; J1885; J2250; J2405; J2704; J3010; J3490; P9045; P9047; Q0163; U0003; U0005

== ENCOUNTER 2020-11-17 15:04 | Emergency (ER) | payer MEDICARE ==
[~2020-11-17 15:04] MED LIST changes: -Fentanyl 100 MCG/2 ML VIAL ONE; -Heparin 10,000 UNITS/ 10 ML VIAL ONE; -Iopamidol 370 76% 100 ML VIAL ONE; -Iopamidol 370 76% 50 ML VIAL FS ONE; +Iopamidol-370 76% 500 ML 1 ML ONE; -Lidocaine 1% (PF) 30 ML VIAL ONE; -Midazolam HCl 2 mg/2 ml Vial ONE; -Protamine Sulfate 50 MG/5 ML VIAL ONE
[2020-11-17 17:27] LABS: #Eosinphils 0.5 thou/uL (0.0-0.7); #Lymphocytes 1.9 thou/uL (1.20-3.40); #Monocytes 0.5 thou/uL (0.11-0.59); #Neutrophils 5.1 thou/uL (1.40-6.50); %Basophils 0.3 % (0.0-1.0); %Lymphocytes 23.4 % (21.0-51.0); %Monocytes 6.5 % (0.0-10.0); %Neutrophils 63.8 % (42.0-75.0); Hemoglobin 10.9 g/dL (12.0-16.0); Mean Corpuscular HGB CONC 32.2 g/dL (32.0-36.0); Mean Corpuscular Hemoglobin 32.2 pg (27.0-31.0); Mean Corpuscular Volume 99.9 fL (78.0-98.0); Mean Platelet Volume 5.9 fL (7.4-10.4); Platelet Count 347 thou/uL (130-400); RBC Distribution Width 13.4 % (11.5-14.5)
[2020-11-17 17:45] LABS: ALT (SGPT) 16 U/L (8-55); AST (SGOT) 14 U/L (5-34); Albumin 3.9 g/dL (3.4-4.8); Alkaline Phosphatase 98 U/L (40-110); Anion Gap 14 mmol/L (10-20); BUN (Urea Nitrogen) 20 mg/dL (9.8-20.1); Bilirubin, Total 0.3 mg/dL (0.2-1.2); Calc. Creatinine Clearance 0 mL/min (70-130); Calcium 9.4 mg/dL (7.8-10.44); Carbon Dioxide 27 mmol/L (23-31); Chloride 107 mmol/L (98-107); Globulin 3.2 g/dL (2.4-3.5); Glucose 123 mg/dL (83-110); Potassium 4.8 mmol/L (3.5-5.1); Protein, Total 7.1 g/dL (5.8-8.1); Sodium 143 mmol/L (136-145)
== END 2020-11-17 18:48 | disposition home or self-care (01) ==
LOC: ERS 15:04
DX: R55 Syncope and collapse (principal); E03.9 Hypothyroidism, unspecified; E78.5 Hyperlipidemia, unspecified; E78.00 Pure hypercholesterolemia, unspecified; I25.2 Old myocardial infarction; I10 Essential (primary) hypertension; K21.9 Gastro-esophageal reflux disease without esophagitis; I25.10 Atherosclerotic heart disease of native coronary artery without angina pectoris; Z87.891 Personal history of nicotine dependence
CPT/HCPCS: 71275; 80053; 84484; 85025; 93005; Q9967

== ENCOUNTER 2021-01-06 07:31 | Outpatient (CLI) | payer MEDICARE | END 2021-01-06 07:32 | disposition home or self-care (01) | LOC: BICRAD 07:31 | PROVIDERS: ATTEND Thoracic Surgery (Cardiothoracic Vascular Surgery) | DX: C34.12 Malignant neoplasm of upper lobe, left bronchus or lung (principal); S22.42XD Multiple fractures of ribs, left side, subsequent encounter for fracture with routine healing; J94.8 Other specified pleural conditions | CPT/HCPCS: 71046 ==

== ENCOUNTER 2021-04-29 11:29 | Outpatient (CLI) | payer MEDICARE | END 2021-04-29 11:30 | disposition home or self-care (01) | LOC: BICRAD 11:29 | PROVIDERS: ATTEND Thoracic Surgery (Cardiothoracic Vascular Surgery) | DX: C34.12 Malignant neoplasm of upper lobe, left bronchus or lung (principal) | CPT/HCPCS: 71046 ==

== ENCOUNTER 2021-07-29 12:41 | Outpatient (CLI) | payer MEDICARE | END 2021-07-29 12:42 | disposition home or self-care (01) | LOC: BICRAD 12:41 | PROVIDERS: ATTEND Thoracic Surgery (Cardiothoracic Vascular Surgery) | DX: C34.12 Malignant neoplasm of upper lobe, left bronchus or lung (principal) | CPT/HCPCS: 71046 ==

== ENCOUNTER 2022-01-26 07:25 | Outpatient (CLI) | payer MEDICARE | END 2022-01-26 07:26 | disposition home or self-care (01) | LOC: BICRAD 07:25 | PROVIDERS: ATTEND Thoracic Surgery (Cardiothoracic Vascular Surgery) | DX: C34.12 Malignant neoplasm of upper lobe, left bronchus or lung (principal) | CPT/HCPCS: 71046 ==

== ENCOUNTER 2022-07-28 12:26 | Outpatient (CLI) | payer MEDICARE | END 2022-07-28 12:27 | disposition home or self-care (01) | LOC: RAD 12:26 | PROVIDERS: ATTEND Thoracic Surgery (Cardiothoracic Vascular Surgery) | DX: C34.12 Malignant neoplasm of upper lobe, left bronchus or lung (principal) | CPT/HCPCS: 71046 ==

== ENCOUNTER 2023-02-15 19:00 | Outpatient (CLI) | payer MEDICARE | END 2023-02-15 19:01 | disposition home or self-care (01) | LOC: SLEEPLAB 19:00 | PROVIDERS: ATTEND Internal Medicine | DX: G47.33 Obstructive sleep apnea (adult) (pediatric) (principal); R53.83 Other fatigue; E66.9 Obesity, unspecified; R06.83 Snoring; I11.0 Hypertensive heart disease with heart failure; I50.9 Heart failure, unspecified; I25.10 Atherosclerotic heart disease of native coronary artery without angina pectoris; E03.9 Hypothyroidism, unspecified; E78.00 Pure hypercholesterolemia, unspecified; K57.92 Diverticulitis of intestine, part unspecified, without perforation or abscess without bleeding; K21.9 Gastro-esophageal reflux disease without esophagitis; I25.2 Old myocardial infarction; J30.9 Allergic rhinitis, unspecified; G47.61 Periodic limb movement disorder; Z78.0 Asymptomatic menopausal state; Z95.1 Presence of aortocoronary bypass graft; Z68.32 Body mass index [BMI] 32.0-32.9, adult | CPT/HCPCS: 95811 ==

== ENCOUNTER 2023-04-17 06:59 | Outpatient (CLI) | payer MEDICARE | END 2023-04-17 07:00 | disposition home or self-care (01) | LOC: ULT 06:59 | PROVIDERS: ATTEND Internal Medicine | DX: R47.81 Slurred speech (principal) | CPT/HCPCS: 93880 ==

== ENCOUNTER 2025-04-08 08:20 | Emergency (ER) | payer OTHER | END 2025-04-08 10:57 | disposition home or self-care (01) | LOC: ERS 08:20 | DX: M25.562 Pain in left knee (principal); I11.0 Hypertensive heart disease with heart failure; I50.9 Heart failure, unspecified; J44.9 Chronic obstructive pulmonary disease, unspecified; I25.10 Atherosclerotic heart disease of native coronary artery without angina pectoris ==